=== PATIENT | male | born 1940 | race Caucasian/White ===

== ENCOUNTER 2020-09-13 09:45 | Outpatient (CLI) | payer MEDICARE, OTHER, SELFPAY ==
--- NOTE | 2020-09-14 10:42 | WPDNEUROLOGY ---
Neurology EEG Report General Information Date of Study: 09/13/20 TEST EEG DIAGNOSIS Cognitive deficit CONDITION OF RECORDING awake drowsy and sleep EEG NUMBER [id number] CLINICAL HISTORY patient has been forgetting a lot of things lately. Appointments, conversations and where he places things. EEG DESCRIPTION basic resting occipital frequency consist of large amount of well-organized low to medium voltage 8 to 10 hertz per 2nd alpha admixed with low-voltage 15 to 18 hertz per 2nd beta. During drowsiness low-voltage beta activity seen diffusely admixed with waxing and waning posterior alpha rhythm. Bilateral symmetrical sleep activity seen during sleep with normal and symmetrical sleep spindles. hyperventilation not done. photic stimulation produced a normal drive. non paroxysmal .nonfocal. nonlateralizing. IMPRESSION normal record
== END 2020-09-13 09:46 | disposition home or self-care (01) ==
PROVIDERS: PCP Internal Medicine; Visit Provider Psychiatry & Neurology Neurology
DX: R41.841 Cognitive communication deficit (principal)
CPT/HCPCS: 95816

== ENCOUNTER 2020-10-27 09:12 | Outpatient (CLI) | payer MEDICARE, OTHER, SELFPAY ==
--- NOTE | 2020-10-27 11:00 | NEURO_ITS ---
Impression: # Complains of hand weakness. # Mild evolving Carpal Tunnel Syndrome. # No ulnar neuropathy. # Normal needle/EMG exam with no neurogenic changes. # Clinical correlation recommended. Nerve Conduction Studies Anti Sensory Summary Table Stim Site NR Peak (ms) P-T Amp (?V) Site1 Site2 Delta-P (ms) Dist (cm) Carlos (m/s) Left Median Anti Sensory (2-3nd Digit) Wrist 3.2 6.4 Wrist 2-3nd Digit 3.2 14.0 44 Wrist 3.2 20.9 Wrist 2-3nd Digit 3.2 14.0 44 Right Median Anti Sensory (2-3nd Digit) Wrist 3.3 7.9 Wrist 2-3nd Digit 3.3 14.0 42 Wrist 3.3 10.8 Wrist 2-3nd Digit 3.3 14.0 42 Left Radial Anti Sensory (Base 1st Digit) Wrist 2.3 13.6 Wrist Base 1st Digit 2.3 0.0 Right Radial Anti Sensory (Base 1st Digit) Wrist 2.9 7.3 Wrist Base 1st Digit 2.9 0.0 Left Ulnar Anti Sensory (5th Digit) Wrist 2.4 25.0 Wrist 5th Digit 2.4 14.0 58 Right Ulnar Anti Sensory (5th Digit) Wrist 2.2 24.0 Wrist 5th Digit 2.2 14.0 64 Motor Summary Table Stim Site NR Onset (ms) O-P Amp (mV) Site1 Site2 Delta-0 (ms) Dist (cm) Carlos (m/s) Left Median Motor (Abd Poll Brev) Wrist 3.4 1.0 Elbow Wrist 6.1 33.0 54 Elbow 9.5 1.2 Right Median Motor (Abd Poll Brev) Wrist 3.8 1.8 Elbow Wrist 5.8 32.0 55 Elbow 9.6 1.1 Left Ulnar Motor (Abd Dig Minimi) Wrist 2.4 3.7 A Elbow Wrist 6.2 33.0 53 A Elbow 8.6 3.1 Right Ulnar Motor (Abd Dig Minimi) Wrist 2.6 3.8 A Elbow Wrist 5.8 31.0 53 A Elbow 8.4 2.8 F Wave Studies NR F-Lat (ms) L-R F-Lat (ms) Left Median (Mrkrs) (Abd Poll Brev) 30.57 0.57 Right Median (Mrkrs) (Abd Poll Brev) 31.15 0.57 Left Ulnar (Mrkrs) (Abd Dig Min) 30.97 0.83 Right Ulnar (Mrkrs) (Abd Dig Min) 31.80 0.83 EMG Side Muscle Nerve Root Ins Act Fibs Amp Dur Recrt Comment Right 1stDorInt Ulnar C8-T1 Nml Nml Nml Nml Nml Right Ext Indicis Radial (Post Int) C7-8 Nml Nml Nml Nml Nml Right Ext Digitorum Radial (Post Int) C7-8 Nml Nml Nml Nml Nml Right BrachioRad Radial C5-6 Nml Nml Nml Nml Nml Right PronatorTeres Median C6-7 Nml Nml Nml Nml Nml Right Abd Poll Brev Median C8-T1 Nml Nml Nml Nml Nml Left 1stDorInt Ulnar C8-T1 Nml Nml Nml Nml Nml Left Ext Indicis Radial (Post Int) C7-8 Nml Nml Nml Nml Nml Left Ext Digitorum Radial (Post Int) C7-8 Nml Nml Nml Nml Nml Left BrachioRad Radial C5-6 Nml Nml Nml Nml Nml Left PronatorTeres Median C6-7 Nml Nml Nml Nml Nml Left Abd Poll Brev Median C8-T1 Nml Nml Nml Nml Nml Right ABD Dig Min Ulnar C8-T1 Nml Nml Nml Nml Nml Right Anconeus Radial C7-8 Nml Nml Nml Nml Nml Right Biceps Musculocut C5-6 Nml Nml Nml Nml Nml Right Brachialis Musculocut C5-6 Nml Nml Nml Nml Nml Right Triceps Radial C6-7-8 Nml Nml Nml Nml Nml Left ABD Dig Min Ulnar C8-T1 Nml Nml Nml Nml Nml Left Anconeus Radial C7-8 Nml Nml Nml Nml Nml Left Biceps Musculocut C5-6 Nml Nml Nml Nml Nml Left Brachialis Musculocut C5-6 Nml Nml Nml Nml Nml Left Triceps Radial C6-7-8 Nml Nml Nml Nml Nml MTDD
== END 2020-10-27 09:13 | disposition home or self-care (01) ==
PROVIDERS: PCP Internal Medicine; Visit Provider Psychiatry & Neurology Neurology
DX: R53.1 Weakness (principal); G56.00 Carpal tunnel syndrome, unspecified upper limb
CPT/HCPCS: 95886; 95911

== ENCOUNTER 2020-11-17 10:32 | Outpatient (CLI) | payer MEDICARE, OTHER, SELFPAY ==
--- NOTE | ~2020-11-17 | CT_ITS ---
EXAMINATION: CT abdomen pelvis wo con EXAM DATE: 11/17/2020 11:12 INDICATION: Left flank pain intermittent. TECHNIQUE: Spiral CT of the abdomen and pelvis was performed without contrast. Axial, coronal and sag ittal images were reviewed. The dose-length product (DLP) for this examination was 271.94 mGy-cm. T he exposure was tailored according to patient size (auto mA exposure control), and iterative reconstr uction (ASIR) was used as additional dose reduction technique. Comparison is made to prior examinatio n from 05/13/2014. FINDINGS: Scattered renal lesions most likely cysts and hemorrhagic cyst but incompletely characteriz ed without contrast. Large left renal pelvic stone measuring 1.6 cm. There is moderate prostatomegaly . The bladder is unremarkable. The liver, spleen, adrenal glands and pancreas are unremarkable. Ga llbladder is unremarkable. No biliary obstruction. There is no retroperitoneal or pelvic lymphadeno jasmin. 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 Small bilateral inguinal fat-containing hernias. The appendix is not positively visualized. There is no pericecal inflammatory change to suggest appe ndicitis. The stomach and small bowel are unremarkable. There is expected amount of colonic stool. No free intraperitoneal gas. The heart is normal in size. There are no pericardial or pleural e ffusions. The lung bases are unremarkable. There are no osteoblastic or osteolytic lesions identifi ed. IMPRESSION: 1. Large left renal pelvic stone. 2. Bilateral renal lesions statistically most likely cysts and hemorrhagic cysts but incompletely ch aracterized. 3. 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 4. Moderate prostatomegaly. Reviewed, dictated and finalized at location B. ING DOWN MACHINE OPERATOR IMPRESSION: 1. Large left renal pelvic stone. 2. Bilateral renal lesions statistically most likely cysts and hemorrhagic cys ts but incompletely characterized. 3. 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 4. Moderate prostatomegaly.
== END 2020-11-17 10:33 | disposition home or self-care (01) ==
PROVIDERS: PCP Internal Medicine; Visit Provider Urology
DX: R10.9 Unspecified abdominal pain (principal); N20.0 Calculus of kidney; N28.9 Disorder of kidney and ureter, unspecified; I72.8 Aneurysm of other specified arteries; N40.0 Benign prostatic hyperplasia without lower urinary tract symptoms
CPT/HCPCS: 74176

== ENCOUNTER 2020-11-24 07:37 | Outpatient (CLI) | payer MEDICARE, OTHER, SELFPAY ==
[2020-11-24 08:06] LABS: INR 0.9; Prothrombin Time 12.7 Seconds (11.1-14.7)
[2020-11-24 08:07] LABS: Partial Thromboplastin Time 29.3 SECONDS (22.3-36.8)
== END 2020-11-24 07:38 | disposition home or self-care (01) ==
LOC: ANHSURGERY 07:41
PROVIDERS: Family Provider Internal Medicine; PCP Internal Medicine; Visit Provider Urology
DX: Z01.812 Encounter for preprocedural laboratory examination (principal); N20.0 Calculus of kidney; Z51.81 Encounter for therapeutic drug level monitoring; Z79.899 Other long term (current) drug therapy
CPT/HCPCS: 36415; 85610; 85730; 87086

== ENCOUNTER 2020-11-30 01:53 | Outpatient (CLI) | payer MEDICARE, OTHER, SELFPAY ==
[2020-11-30 18:12] LABS: SARS-CoV-2 RNA PCR Negative
== END 2020-11-30 01:54 | disposition home or self-care (01) ==
LOC: ANHCOVIDDT 01:54
PROVIDERS: Family Provider Internal Medicine; PCP Internal Medicine; Visit Provider Urology
DX: Z01.812 Encounter for preprocedural laboratory examination (principal); Z20.822 Contact with and (suspected) exposure to COVID-19
CPT/HCPCS: C9803; U0003; U0005

== ENCOUNTER 2020-12-03 02:41 | Day surgery (SDC) | payer MEDICARE, OTHER, SELFPAY ==
[2020-11-22 15:53] VITALS: BMI 27.1
--- NOTE | 2020-11-30 07:27 | P.HP_ITS ---
History of Present Illness History of Present Illness Consent: Risks, benefits, and alternatives have been discussed and questions answered. Patient agrees to proceed with procedure. Chief complaint: Left Renal Stone Narrative: Nic Monroe is a 80 year old male with a history of recurring urolithiasis. He followed up early with complaints of mild right flank pain recently. CT scan of the abdomen and pelvis without contrast shows a 1.6 cm right renal calculus. After discussion of therapeutic options he elected for cysto with right stent placement and right ESWL Review of Systems Cardiovascular: Cardiovascular: Denies chest pain, Denies lightheadedness, Denies palpitations and Denies dyspnea Respiratory: Respiratory: Denies dyspnea Gastrointestinal: Gastrointestinal: Denies diarrhea, Denies nausea and Denies vomiting Genitourinary: Genitourinary: Denies hematuria and Denies dysuria Endocrine: Endocrine: Denies palpitations [facility] Surgical History Surgical History Status post dilation of esophageal narrowing Social History Social History Smoking packs per day: 1 Smoking cigarettes per day: 20.0 Years smoked: 9 Smoking pack-years: 9.00 Smoking status: Former smoker Tobacco type: cigarettes Smoking end date: 11/05/78 Alcohol intake: current Drinks per week: 1 Substance use: never Spiritual care concerns: No Meds Home Medications and Allergies Home Medications Medication Instructions Recorded Confirmed Type aspirin 81 mg tablet,delayed 81 mg PO DAILY 06/23/20 11/22/20 History release atorvastatin 10 mg PO QAM 11/22/20 11/22/20 History melatonin 3 mg PO HS PRN 11/22/20 11/22/20 History vitamins A,C,J-rbcs-zqydgk 1 tablet PO BID 11/22/20 11/22/20 History [PreserVision AREDS] Allergies Allergy/AdvReac Type Severity Reaction Status Date / Time alprazolam [From Xanax] Allergy Severe Jittery Verified 11/22/20 15:31 Exam Const: General: no acute distress Resp: Effort & Inspection: normal respiratory effort GI: Inspection: non-distended GI Palp: No abdominal tenderness and No Guar ding due to palpation present (GI) Auscultation: normal bowel sounds Assessment and Plan Assessment and plan (1) Right renal stone: Code(s): N20.0 - Calculus of kidney Status: Acute Assessment and Plan: * Cystoscopy with right ureteral stent placement, right ESWL.
--- NOTE | 2020-12-02 14:48 | P.PNAN_ITS ---
Anes - Initial Pre Proc Eval Procedure: Operation Date: 12/03/20 12:30 Proposed Procedures p Left Extracorporeal Shock Wave Lithotripsy - Jamey Hall MD s Cystoscopy, Left Ureteral Stent - Jamey Hall MD Date/Time: 12/02/20 14:48 Surgeon: Jamey Hall MD Pre Op Diagnosis: Left Renal Stone Patient Data Age: 80 Gender: M Height: 1.83 m Weight: 90.72 kg Allergies Allergy/AdvReac Type Severity Reaction Status Date / Time alprazolam [From Xanax] Allergy Severe Jittery Verified 12/03/20 10:27 Home Medications Medication Instructions Recorded Confirmed Type aspirin 81 mg tablet,delayed 81 mg PO DAILY 06/23/20 12/03/20 History release atorvastatin 10 mg PO QAM 11/22/20 12/03/20 History melatonin 3 mg PO HS PRN 11/22/20 12/03/20 History vitamins A,C,X-nhok-qrcydx 1 tablet PO BID 11/22/20 12/03/20 History [PreserVision AREDS] Patient hx anesthesia problems: none Family hx anesthesia problems: none [facility] Past Medical History Medical History (Updated 12/02/20 @ 14:49 by Cliff Whyte MD) Arthritis CAD (coronary artery disease) Hypercholesterolemia TERRELL (obstructive sleep apnea) Overweight (BMI 25.0-29.9) Surgical History Surgical History (Updated 12/02/20 @ 14:49 by Cliff Whyte MD) History of coronary artery stent placement x 2007 Status post dilation of esophageal narrowing Social History Social History Smoking packs per day: 1 Smoking cigarettes per day: 20.0 Years smoked: 9 Smoking pack-years: 9.00 Smoking status: Former smoker Tobacco type: cigarettes Smoking end date: 11/05/78 Alcohol intake: current Drinks per week: 1 Substance use: never Living arrangements: alone Spiritual care concerns: No Anes - Eval Final PreProcedure Day of Procedure 12/02/20 14:48 Patient weight: overweight Heart: regular rate and rhythm Lungs: clear to auscultation and normal air movement Airway: Mallampati scale class II Neurological: alert and oriented Last oral intake: >/= 8 hours ASA classification: III Emergent: no Anesthetic plan: proceed Anesthesia type and monitoring: general LMA Informed Consent: The patient's anesthetic plan and its attendant risks and benefits were discussed with the patient/family/POA. Questions were solicited and answers provided to the satisfaction of the patient/family/POA.
[2020-12-03] VITALS (8 sets, daily range): BP systolic 120–152; BP diastolic 60–99; PULSE 60–75; RESP 10–20; TEMP 36.2–36.5; O2SAT 98–100
--- NOTE | ~2020-12-03 | XR_ITS ---
EXAMINATION: XR abdomen/kub 1V DATE: 12/03/2020 13:44 INDICATION: Left kidney stone. TECHNIQUE: A supine view of the abdomen on 3 radiographs was obtained. COMPARISON: CT abdomen and pelvis 11/17/2020 FINDINGS: There are no dilated loops of bowel. There are phleboliths in the pelvis. There is a 17 mm stone in left renal pelvis. IMPRESSION: 1. 17 mm stone in left renal pelvis. Reviewed, dictated and finalized at location A. ATIONAL AID
--- NOTE | 2020-12-03 08:46 | WPDHPUPDATE1 ---
History and Physical Update Update Date/Time: 12/03/20 08:46 History and Physical has been reviewed, including an updated exam of the patient. There are NO changes in the patient's condition. Risks, benefits, and alternatives have been discussed and questions answered. Patient agrees to proceed with procedure.
[2020-12-03] MEDS: LACTATED RINGERS 1,000 ML 30 ML IV CONT (10:47)
[2020-12-03] MEDS: ceFAZolin 2 GM/D5W 50 ML 2 GM/50 ML BAG IVPB (11:55)
--- NOTE | 2020-12-03 12:30 | PM.PROC ---
Procedure Note - Detailed Date of procedure: 12/03/20 Pre-op diagnosis: Left Renal Stone Post-op diagnosis: same Procedure performed: Cystoscopy with left ureteral stent placement and left ESWL Description of procedure: The patient was brought to the operative suite where he was placed in the supine position on the Dornier lithotripter table. Flexible cystoscopy was undertaken with a 16F flexible cystoscopy. There were no urethral strictures. The prostatic urethra estimated length was 2.0cm. There was mild obstruction of the prostatic urethra with small median lobe enlargement. The bladder mucosa was normal and there was a single, orthotopic ureteral orifice bilaterally. A 0.035 glidewire was advanced into the left renal pelvis under fluoroscopy. A 4.8F J-J ureteral stent was positioned with the proximal coil in the renal pelvis and the distal coil in the bladder. The patient was then repositioned in the supine position with the focal point of the lithotriptor on a 6-7mm left mid-ureteral calculus. A total of 2500 shocks were delivered at a power setting of 4 to a 15mm left renal pelvic calculus. There appeared to be good fragmentation of the stone. The patient tolerated the procedure well and was taken to the recovery room in good condition. Anesthesia: GLMA Surgeon: Jamey Hall MD Estimated blood loss (mL): 0 Drains: Yes (4.8F left ureteral stent) Packing: No Pathology: none sent Complications: No immediate complications Condition: stable Disposition: PACU
[2020-12-03] MEDS: oxyCODONE HCL (*CRX) 5 MG TAB IR PO (14:19)
[2020-12-03] MEDS: KETOROLAC 30 MG/ML VIAL (*BKC) IV PUSH (14:42)
== END 2020-12-03 14:45 | disposition home or self-care (01) ==
PROVIDERS: Family Provider Internal Medicine; PCP Internal Medicine; Visit Provider Urology
PROC: (CPT 50590; principal; 2020-12-03 12:30)
PROC: (CPT 52352; 2020-12-03 12:30)
DX: Z87.891 Personal history of nicotine dependence (principal); Z79.82 Long term (current) use of aspirin
CPT/HCPCS: 50590; 52332; 74018; A9270; C1769; C1887; C2617; J0690; J1885; J2405; J2704; J3010; J7120

== ENCOUNTER 2020-12-22 12:18 | Outpatient (CLI) | payer MEDICARE, OTHER, SELFPAY ==
--- NOTE | ~2020-12-22 | XR_ITS ---
XR abdomen/kub 1V DATE: 12/22/2020 12:39 INDICATION: Kidney stone TECHNIQUE: AP projection, 2 views COMPARISON: 12/03/2020 KUB FINDINGS: The previously reported 17 mm calcified left renal pelvic stone was subjected to recent li thotripsy (12/03/2020 presumably). There is a left internal urinary stent placed since 12/03/2020 KUB. There are multiple calcified stone fragments in the lower pole collecting system of the left kidney and in a linear array of approximat betzy 6 cm length along the proximal left ureter from upper L3 to upper L4 level (Steinstrasse). At least one calcified distal left ureteral stone near the ureterovesical junction is noted. Interval stent overlying the distal abdominal aorta and common iliac area. The psoas shadows are intact. No visceromegaly is evident. No evidence of bowel obstruction. school bus monitor device overlies the lower left chest. The lower lung zones are clear. Heart size appe ars normal. IMPRESSION: Interval left internal urinary stent placement following lithotripsy of 1.7 cm left renal pelvic stone, with multiple stone fragments in the lower pole collecting system, Steinstrasse at the proximal left ureter and at least one distal left ureteral stone Reviewed, dictated and finalized at Location A. Reviewed, dictated and finalized at location B. ANIC MARINE ENGINE IMPRESSION: Interval left internal urinary stent placement following lithotrips y of 1.7 cm left renal pelvic stone, with multiple stone fragments in the lower pole collecting system, Steinstrasse at the proximal left ureter and at least one distal left ureteral stone
== END 2020-12-22 12:19 | disposition home or self-care (01) ==
LOC: ANHIMG 12:21
PROVIDERS: PCP Internal Medicine; Visit Provider Urology
DX: N20.0 Calculus of kidney (principal); Z96.0 Presence of urogenital implants; Z98.890 Other specified postprocedural states
CPT/HCPCS: 74018

== ENCOUNTER 2021-01-11 10:16 | Outpatient (CLI) | payer MEDICARE, OTHER, SELFPAY ==
--- NOTE | ~2021-01-11 | XR_ITS ---
EXAMINATION: XR abdomen/kub 1V INDICATION: Calculus of kidney TECHNIQUE: Supine views of the abdomen were obtained on 2 radiographs. COMPARISON: 12/22/2020 FINDINGS: A left internal ureteral stent is in expected position. Again seen are multiple stones maureen cent to the proximal aspect of the stent. Several stones have migrated to the distal aspect of the ur eter adjacent to the stent at the ureterovesicular junction. Pelvic phleboliths are noted. Stones vivienne suring 6 mm and 5 mm are seen in the lower pole of the left kidney. The bowel gas pattern is normal. The visualized lung bases are clear. Endovascular stents are noted in the left pelvis. IMPRESSION: 1. Left internal ureteral stent in expected position with Steinstrasse of the left proximal and dista l ureter. Reviewed, dictated and finalized at location A. H WINDING SUPERVISOR IMPRESSION: 1. Left internal ureteral stent in expected position with Steinstrasse of the l eft proximal and distal ureter.
== END 2021-01-11 10:17 | disposition home or self-care (01) ==
LOC: ANHIMG 10:20
PROVIDERS: PCP Internal Medicine; Visit Provider Urology
DX: N20.0 Calculus of kidney (principal); Z96.0 Presence of urogenital implants
CPT/HCPCS: 74018

== ENCOUNTER 2021-01-12 13:31 | Outpatient (CLI) | payer MEDICARE, OTHER, SELFPAY ==
--- NOTE | ~2021-01-12 | XR_ITS ---
EXAMINATION: XR abdomen/kub 1V INDICATION: Calculus of the kidney TECHNIQUE: Supine views of the abdomen were obtained on 2 radiographs. COMPARISON: 01/11/2021 FINDINGS: A left internal ureteral stent is in expected position. There has been interval decrease in the number of ureteral stones adjacent to the distal aspect of the stent. Multiple stones persist ad jacent to the proximal aspect of the stent. Stones measuring up to 6 mm are noted in the left kidney lower pole. The bowel gas pattern is normal. Endovascular stents are present in the left pelvis. IMPRESSION: 1. Interval treatment or removal of previously described stones adjacent to the distal aspect of the left internal ureteral stent. Persistent Steinstrasse of the left proximal ureter. Reviewed, dictated and finalized at location A. EWATER ANALYST LAB ANALYST
== END 2021-01-12 13:32 | disposition home or self-care (01) ==
LOC: ANHIMG 13:36
PROVIDERS: PCP Internal Medicine; Visit Provider Urology
DX: N20.0 Calculus of kidney (principal); Z96.0 Presence of urogenital implants
CPT/HCPCS: 74018

== ENCOUNTER 2021-01-14 09:58 | Outpatient (CLI) | payer MEDICARE, OTHER, SELFPAY ==
[2021-01-14 10:27] LABS: INR 0.9; Prothrombin Time 12.9 Seconds (11.1-14.7)
[2021-01-14 10:28] LABS: Partial Thromboplastin Time 30.2 SECONDS (22.3-36.8)
== END 2021-01-14 09:59 | disposition home or self-care (01) ==
LOC: ANHSURGERY 09:59
PROVIDERS: PCP Internal Medicine; Visit Provider Urology
DX: Z01.818 Encounter for other preprocedural examination (principal); N20.0 Calculus of kidney
CPT/HCPCS: 36415; 85610; 85730; 87086

== ENCOUNTER → 2021-01-18 00:37 | Outpatient (CLI) | payer MEDICARE, OTHER, SELFPAY ==
[2021-01-18 18:32] LABS: SARS-CoV-2 RNA PCR Negative
== END ==
PROVIDERS: PCP Internal Medicine; Visit Provider Urology
DX: Z01.812 Encounter for preprocedural laboratory examination (principal); Z20.822 Contact with and (suspected) exposure to COVID-19
CPT/HCPCS: C9803; U0003; U0005

== ENCOUNTER 2021-01-21 01:43 | Day surgery (SDC) | payer MEDICARE, OTHER, SELFPAY ==
[2021-01-13 12:06] VITALS: BMI 25.9
--- NOTE | 2021-01-17 08:01 | P.HP_ITS ---
History of Present Illness History of Present Illness Consent: Risks, benefits, and alternatives have been discussed and questions answered. Patient agrees to proceed with procedure. Chief complaint: left renal stone Narrative: Nic Monroe is a 80 year old male who is status post recent ESWL for large left renal calculus. The stone fragmented nice but he is left with a residual fragments in his left proximal ureter. After discussion options and waiting for a while has elected to proceed with repeat left ESWL. Review of Systems Cardiovascular: Cardiovascular: Denies chest pain, Denies lightheadedness, Denies palpitations and Denies dyspnea Respiratory: Respiratory: Denies dyspnea Gastrointestinal: Gastrointestinal: Denies diarrhea, Denies nausea and Denies vomiting Genitourinary: Genitourinary: Denies hematuria and Denies dysuria Endocrine: Endocrine: Denies palpitations [facility] Past Medical History Medical History Arthritis CAD (coronary artery disease) Hypercholesterolemia TERRELL (obstructive sleep apnea) Overweight (BMI 25.0-29.9) Surgical History Surgical History History of coronary artery stent placement x 2007 Status post dilation of esophageal narrowing Social History Social History Smoking packs per day: 1 Smoking cigarettes per day: 20.0 Years smoked: 10 Smoking pack-years: 10.00 Smoking status: Former smoker Tobacco type: cigarettes Smoking end date: 05/05/79 Alcohol intake: current Drinks per week: 1 Substance use: never Spiritual care concerns: No Meds Home Medications and Allergies Home Medications Medication Instructions Recorded Confirmed Type aspirin 81 mg tablet,delayed 81 mg PO DAILY 06/23/20 01/13/21 History release PreserVision AREDS 1 tablet PO BID 11/22/20 01/13/21 History atorvastatin 10 mg PO QAM 11/22/20 01/13/21 History melatonin 3 mg PO HS PRN 11/22/20 01/13/21 History fluticasone propionate 1 spray INTRANASAL BID PRN 01/13/21 01/13/21 History Allergies Allergy/AdvReac Type Severity Reaction Status Date / Time alprazolam [From Xanax] AdvReac Severe Jittery, Verified 01/13/21 11:56 AGITATION Exam Const: General: no acute distress Resp: Effort & Inspection: normal respiratory effort GI: Inspection: non-distended GI Palp: No abdominal tenderness and No Guarding due to palpation present (GI) Auscultation: normal bowel sounds Assessment and Plan Assessment and plan (1) Left renal stone: Code(s): N20.0 - Calculus of kidney Status: Acute Assessment and Plan: * Left ESWL
[2021-01-21] VITALS (7 sets, daily range): BP systolic 120–136; BP diastolic 73–83; PULSE 45–64; RESP 11–18; TEMP 36.3; O2SAT 95–100
--- NOTE | ~2021-01-21 | XR_ITS ---
EXAMINATION: XR abdomen/kub 1V DATE: 01/21/2021 08:11 INDICATION: Kidney stone. TECHNIQUE: A supine view of the abdomen on 2 radiographs was obtained. COMPARISON: CT abdomen and pelvis 11/17/2020, abdomen radiographs 01/12/2021 FINDINGS: There are no dilated loops of bowel. There is a stent graft in abdominal aorta and common i liac arteries. There are phleboliths in the pelvis. Right kidney is obscured by bowel. There is a lef t internal ureteral stent in expected position. There are stones in left kidney. There are greater th an 10 clustered stones in proximal left ureter. The largest stone or cluster of stones measures 10 x 5 mm. IMPRESSION: 1. Stones in the left kidney and proximal left ureter with left internal ureteral stent in expected p osition. Reviewed, dictated and finalized at location A. IMPRESSION: 1. Stones in the left kidney and proximal left ureter with left internal ureter al stent in expected position.
--- NOTE | 2021-01-21 08:18 | WPDHPUPDATE1 ---
History and Physical Update Update Date/Time: 01/21/21 08:18 History and Physical has been reviewed, including an updated exam of the patient. There are NO changes in the patient's condition. Risks, benefits, and alternatives have been discussed and questions answered. Patient agrees to proceed with procedure.
[2021-01-21] MEDS: LACTATED RINGERS 1,000 ML 30 ML IV CONT (08:50)
--- NOTE | 2021-01-21 10:32 | WPDANESEPPF ---
Anes - Initial Pre Proc Eval Procedure: Operation Date: 01/21/21 10:30 Proposed Procedures p Left Renal Extracorporeal Shock Wave Lithotripsy - Jamey Hall MD Date/Time: 01/21/21 10:32 Surgeon: Jamey Hall MD Pre Op Diagnosis: left renal stone Patient Data Age: 80 Gender: M Height: 6 ft Weight: 87 kg Last Vital Signs Temp 97.4 F L 01/21/21 09:08 Pulse 57 L 01/21/21 09:08 Resp 18 01/21/21 09:08 BP 128/79 01/21/21 09:08 Pulse Ox 100 01/21/21 09:08 Allergies Allergy/AdvReac Type Severity Reaction Status Date / Time alprazolam [From Xanax] AdvReac Severe Jittery, Verified 01/18/21 08:04 AGITATION Home Medications Medication Instructions Recorded Confirmed Type aspirin 81 mg tablet,delayed 81 mg PO DAILY 06/23/20 01/13/21 History release PreserVision AREDS 1 tablet PO BID 11/22/20 01/13/21 History atorvastatin 10 mg PO QAM 11/22/20 01/13/21 History melatonin 3 mg PO HS PRN 11/22/20 01/13/21 History fluticasone propionate 1 spray INTRANASAL BID PRN 01/13/21 01/13/21 History fluticasone propionate 50 1 spray INTRANASAL BID #16 ml 01/18/21 01/18/21 Rx mcg/actuation nasal spray,suspension Patient hx anesthesia problems: none Family hx anesthesia problems: none PMFSH Past Medical History Medical History Arthritis CAD (coronary artery disease) Hypercholesterolemia TERRELL (obstructive sleep apnea) Overweight (BMI 25.0-29.9) Surgical History Surgical History History of coronary artery stent placement x 2007 Status post dilation of esophageal narrowing Social History Social History Smoking packs per day: 1 Smoking cigarettes per day: 20.0 Years smoked: 10 Smoking pack-years: 10.00 Smoking status: Former smoker Tobacco type: cigarettes Smoking end date: 05/05/79 Alcohol intake: current Drinks per week: 1 Alcohol use details: 1 BOTTLE BEER/WEEK Substance use: never Living arrangements: alone Spiritual care concerns: No Anes - Eval Final PreProcedure Day of Procedure 01/21/21 10:32 Patient weight: normal Heart: regular rate and rhythm Lungs: clear to auscultation Airway: Mallampati scale class II Neurological: alert and oriented Last oral intake: >/= 8 hours ASA classification: III Emergent: no Anesthetic plan: proceed Anesthesia type and monitoring: general LMA and standard monitoring Informed Consent: The patient's anesthetic plan and its attendant risks and benefits were discussed with the patient/family/POA. Questions were solicited and answers provided to the satisfaction of the patient/family/POA.
[2021-01-21] MEDS: ceFAZolin 2 GM/D5W 50 ML 2 GM/50 ML BAG IVPB (10:53)
--- NOTE | 2021-01-21 11:18 | P.OP_ITS ---
Procedure Note - Detailed Date of procedure: 01/21/21 Pre-op diagnosis: Left ureteral stones Post-op diagnosis: same Procedure performed: Left ESWL Description of procedure: The patient was brought to the operative suite where he was placed in the supine position on the Dornier lithotripsy table. The focal point of the lithotripter was placed at a string of stones in the left proximal ureter. A total of 3000 shocks were delivered at a power setting of 4. There appeared to be good fragmentation of the stone. The patient tolerated the procedure well and was taken to the recovery room in good condition. Anesthesia: GLMA Surgeon: Jamey Hall MD Market Development Specialist: None Drains: No Packing: No Pathology: none sent Complications: No immediate complications Condition: stable Disposition: PACU
--- NOTE | 2021-01-21 12:19 | SUR.PHASEI ---
1215 - called in regards to pt's heart rate and rhythm. Hr 40-48. pt states that heart rate is typically slow for him. no orders received
--- NOTE | 2021-01-21 12:31 | SUR.PHASEI ---
[id number] - dr. stein at bedside
== END 2021-01-21 13:50 | disposition home or self-care (01) ==
PROVIDERS: PCP Internal Medicine; Visit Provider Urology
PROC: (CPT 50590; principal; 2021-01-21 10:30)
DX: N20.0 Calculus of kidney (principal); M19.90 Unspecified osteoarthritis, unspecified site; I25.10 Atherosclerotic heart disease of native coronary artery without angina pectoris; G47.33 Obstructive sleep apnea (adult) (pediatric); E78.00 Pure hypercholesterolemia, unspecified; Z87.891 Personal history of nicotine dependence; Z79.82 Long term (current) use of aspirin
CPT/HCPCS: 50590; 74018; J0690; J2704; J7120

== ENCOUNTER 2021-02-03 13:35 | Outpatient (CLI) | payer MEDICARE, OTHER, SELFPAY ==
--- NOTE | ~2021-02-03 | XR_ITS ---
EXAMINATION: XR abdomen/kub 1V EXAM DATE: 02/03/2021 14:02 INDICATION: LT renal kidney stone surgery in November . TECHNIQUE: Frontal projection of the upper abdomen, frontal projection lower abdomen/pelvis for inter pretation. Comparison is made to prior examination from 01/22/2020. FINDINGS: Left-sided double-J ureteral stent is in expected position. There are multiple calcific de nsities lined up along the proximal aspect of the stent, in same location as prior study but may have interval decrease in quantity. There is lower aortoiliac endograft. There is large amount of coloni c stool. No small bowel dilation. There is pulmonary vascular congestion. IMPRESSION: Multiple proximal left ureteral stones, possibly with mild decrease in stone burden. Reviewed, dictated and finalized at location A. IMPRESSION: Multiple proximal left ureteral stones, possibly with mild decreas e in stone burden.
== END 2021-02-03 13:36 | disposition home or self-care (01) ==
LOC: ANHIMG 13:42
PROVIDERS: PCP Internal Medicine; Visit Provider Urology
DX: N20.1 Calculus of ureter (principal)
CPT/HCPCS: 74018

== ENCOUNTER 2021-02-18 15:27 | Outpatient (CLI) | payer MEDICARE, OTHER, SELFPAY ==
--- NOTE | ~2021-02-18 | XR_ITS ---
XR abdomen/kub 1V DATE: 02/18/2021 15:54 INDICATION: Left kidney stones, history of lithotripsy and left internal urinary stent placement TECHNIQUE: AP projection, 2 views COMPARISON: 02/03/2021 KUB FINDINGS: Two of three calcified calculi persist along the proximal left ureter alongside the left in ternal urinary stent since 02/03/21. One of the 3 calcified calculi has progressed further along the left ureter, now located at approxima tely the S3 level of the distal left ureter. There is a prominent amount of feces in the colon, but diminished since 02/03/2021. Left aortic and iliac endovascular stent. IMPRESSION: Progression of one of 3 proximal ureteral calcified calculi into the distal left ureter. Persistent left internal urinary stent Reviewed, dictated and finalized at [facility]. Reviewed, dictated and finalized at location A. IMPRESSION: Progression of one of 3 proximal ureteral calcified calculi into th e distal left ureter. Persistent left internal urinary stent
== END 2021-02-18 15:28 | disposition home or self-care (01) ==
LOC: ANHIMG 15:33
PROVIDERS: PCP Internal Medicine; Visit Provider Urology
DX: N20.0 Calculus of kidney (principal); N20.1 Calculus of ureter; Z96.0 Presence of urogenital implants
CPT/HCPCS: 74018

== ENCOUNTER 2021-12-23 08:59 | Outpatient (CLI) | payer MEDICARE, OTHER, SELFPAY ==
--- NOTE | ~2021-12-23 | XR_ITS ---
EXAMINATION: XR abdomen/kub 1V INDICATION: Enlarged prostate with lower urinary tract symptoms TECHNIQUE: Supine views of the abdomen were obtained on three radiographs. COMPARISON: 02/18/2021 FINDINGS: The left internal ureteral stent has been removed. No urolithiasis is identified. There are phleboliths of the pelvis. A moderate volume of colonic stool is present. The visualized lung bases are clear. A cardiac monitoring device projects over the left lower chest wall. Endovascular stents a re noted in the left common iliac vessels. 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 IMPRESSION: 1. No urolithiasis identified. Reviewed, dictated and finalized at location A. EL SLAGMAN
== END 2021-12-23 09:00 | disposition home or self-care (01) ==
PROVIDERS: PCP Internal Medicine; Visit Provider Urology
DX: N40.1 Benign prostatic hyperplasia with lower urinary tract symptoms (principal); M16.0 Bilateral primary osteoarthritis of hip
CPT/HCPCS: 74018

== ENCOUNTER → 2022-09-19 11:56 | Outpatient (CLI) | payer MEDICARE, OTHER, SELFPAY ==
--- NOTE | ~2022-09-19 | CT_ITS ---
EXAMINATION: CT abdomen pelvis w con DATE: 09/19/2022 12:37 INDICATION: Constipation. Nausea. TECHNIQUE: Computed tomography (CT) of the abdomen and pelvis was performed with 100 mL Omnipaque 350 intravenous contrast. Automated exposure control and iterative reconstruction technique were employe d. The dose-length product was 947.74 mGy-cm. COMPARISON: CT abdomen and pelvis 11/17/2020 FINDINGS: The visualized portions of the lung bases demonstrate mild atelectasis. No pleural effusion . The heart size is normal. There are coronary artery calcifications. No pericardial effusion. There is a small sliding hiatal hernia. The liver and gallbladder are normal. Calcifications in the spleen are consistent with old granulomatous disease. The pancreas and adrenal glands are normal. There are cysts in the kidneys measuring up to 4.8 cm on the left. There are bilateral inguinal hernias contain ing fat. The prostate is severely enlarged. The appendix is not visualized. There are no dilated loop s of bowel. There is a moderate volume of stool in the colon. 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 There are no pathologically enlarged lymph nodes. There is no free intraperitonea l fluid. There is moderate lumbar spondylosis and mild thoracic spondylosis. There is a chronic compr ession fracture of L3. IMPRESSION: 1. Small sliding hiatal hernia. 2. Bilateral inguinal hernias containing fat. Reviewed, dictated and finalized at location A. [facility]
[2022-09-19 12:26] LABS: Estimated Glomerular Filt Rate > 60
== END ==
PROVIDERS: PCP Internal Medicine; Visit Provider Internal Medicine
DX: K59.00 Constipation, unspecified (principal); K44.9 Diaphragmatic hernia without obstruction or gangrene; K40.90 Unilateral inguinal hernia, without obstruction or gangrene, not specified as recurrent
CPT/HCPCS: 74177; Q9967

== ENCOUNTER → 2022-11-29 15:25 | Outpatient (CLI) | payer MEDICARE, OTHER, SELFPAY ==
--- NOTE | ~2022-11-29 | XR_ITS ---
EXAM: XR_CERV2-3V_CR DATE: 11/29/2022 15:51 HISTORY: Cervicalgia; post pain/LROM; no injury . COMPARISON: None available. FINDINGS: Craniocervical association and atlantoaxial joint are aligned and display moderate degener ative change. No prevertebral soft tissue swelling. Exaggerated cervical lordosis. 2 mm anterolisthes is at C5-6, the remaining bodies are aligned. Vertebral body heights are maintained. Mild disc space narrowing at C5-6 and C6-7. Multilevel facet hypertrophy and sclerosis. Osteopenia. Surgical clips ov er the lower neck. IMPRESSION: Minimal grade 1 anterolisthesis at C5-6. Mild lower cervical degenerative disc disease. M ultilevel facet arthropathy. Reviewed, dictated and finalized at location K. SFUSION NURSE IMPRESSION: Minimal grade 1 anterolisthesis at C5-6. Mild lower cervical degene rative disc disease. Multilevel facet arthropathy.
== END ==
PROVIDERS: PCP Internal Medicine; Visit Provider Internal Medicine
DX: M43.12 Spondylolisthesis, cervical region (principal); M50.322 Other cervical disc degeneration at C5-C6 level
CPT/HCPCS: 72040

== ENCOUNTER 2024-07-23 12:04 | Outpatient (CLI) | payer OTHER, MEDICARE, SELFPAY ==
--- NOTE | ~2024-07-23 | XR_ITS ---
EXAMINATION: XR hip LT min 2V DATE: 07/23/2024 12:17 INDICATION: Left hip pain. TECHNIQUE: 2 views of left hip were obtained. COMPARISON: None. FINDINGS: Alignment is normal. No fracture. There is severe left hip osteoarthritis. Vascular stents overlie the abdomen. IMPRESSION: 1. Severe left hip osteoarthritis. Reviewed, dictated and finalized at location A.
== END 2024-07-23 12:05 | disposition home or self-care (01) ==
LOC: MICIMG 12:06
PROVIDERS: PCP Internal Medicine; Visit Provider Internal Medicine
DX: M16.12 Unilateral primary osteoarthritis, left hip (principal)
CPT/HCPCS: 73502

== ENCOUNTER 2024-10-08 09:44 | Outpatient (CLI) | payer OTHER, MEDICARE, SELFPAY ==
--- NOTE | ~2024-10-08 | XR_ITS ---
EXAMINATION: XR_CERV2-3V_CR DATE: 10/08/2024 10:04 INDICATION: Neck pain. TECHNIQUE: 3 views of cervical spine on 5 radiographs were obtained. COMPARISON: Cervical spine radiographs 11/29/2022 FINDINGS: There is 10 degrees dextroscoliosis of cervical spine. Vertebral body heights are normal. T here is mildly decreased disc height at C5-C6. There is multilevel [id number] facet joint osteo arthritis. No central canal stenosis or prevertebral soft tissue swelling. IMPRESSION: 1. Mild cervical spondylosis. 2. Cervical dextroscoliosis. Reviewed, dictated and finalized at location A. GER CARGO
== END 2024-10-08 09:45 | disposition home or self-care (01) ==
PROVIDERS: PCP Internal Medicine; Visit Provider Internal Medicine
DX: M47.812 Spondylosis without myelopathy or radiculopathy, cervical region (principal); M41.82 Other forms of scoliosis, cervical region
CPT/HCPCS: 72040

== ENCOUNTER 2024-12-26 04:59 | Day surgery (SDC) | payer MEDICARE, OTHER, SELFPAY ==
[2024-12-11 14:52] VITALS: BMI 29.5
--- OUTSIDE RECORDS SUMMARY | 2024-12-26 05:03 | XMS_ITS | Data Portability ---
Author Organization [facility], Main Office Address [address] [place] [address] Care Team Providers Care Environmental Technician Name Role Phone HARIKA SPEAR Primary Care Provider HARIKA SPEAR Referring Provider Assessment Encounter Date Assessment Date Assessment LastModified by Organization Details LastModified Time 06/13/2023 06/13/2023 Will get a bone density because of his reported loss of height will also just monitor his arm just a bruise and ecchymosis and hematoma in evolution keep regular follow-up [email or web address] Not available 06/17/2023 14:44:14 07/27/2023 07/27/2023 Carotid duplex Endocrine referral for osteoporosis Has had some hypogonadism but has refused treatment Follow-up in 4 months [email or web address] Not available 07/28/2023 21:34:41 11/08/2023 11/08/2023 Loratadine but not loratadine D [email or web address] Not available 11/08/2023 15:41:07 2024 2024 84-year-old male presents for evaluation of his left hip. He reports longstanding pain over a year, getting progressively worse. He denies any acute injury. He reports pain as 2/10. He has not had any treatments for this yet. He has pain with walking and activities, worse with increasing activity. Review of systems per patient questionnaire Physical exam: He has tenderness to palpation in the groin and posterior hip. No pain with logroll. Flexion to 100, 10 of internal rotation, 30 of external rotation, which causes him pain. He has negative Stinchfield, good hip flexion and abduction adduction strength. X-rays were reviewed, demonstrating degenerative changes with joint space narrowing, sclerosis, osteophytes He has osteoarthritis of the hip. We will begin with a course of conservative management with physical therapy anti-inflammatori es. We discussed next step if he fails to improve would be to conservative a cortisone injection which be fluoroscopy guided. He may follow up as needed. Not available 08/12/2024 21:32:03 09/29/2024 09/29/2024 84-year-old male presents for follow-up of his left hip. He has osteoarthritis that we have been treating conservatively with physical therapy and meloxicam. He has finished his course of PT and doing home exercises now. That was helpful. Now he has minimal pain rated 2/10. He is walking better. No pain with range of motion, internal and external rotation. No pain with hip flexion. Nonantalgic gait. At this point he has had significant improvement. He may continue doing the physical therapy excess taking meloxicam as needed. Follow up as needed. Not available 09/29/2024 09:40:16 Plan of Treatment Reminders Order Date Submit Date Provider Last Modified By Organization Details Last Modified Time Details Appointments None recorded. Lab None recorded. Referral physical therapist referral - Please contact patient to schedule 2023 024 [facility], [address], [place], [address], 4 12:18:30 endocrinolo gy referral 2022 023 [email or web address] [place], [address] , [place], [address], 18:33:20 Procedures None recorded. Surgeries None recorded. Imaging US, duplex, carotid artery 2022 023 [facility] ([facility]), [address] [place], [address], 3 16:13:28 bone density 2022 023 [facility] ([facility]), [address] [place], [address], 3 11:03:19 Medication Orders meloxicam 15 mg tablet 2023 024 [id number], [address], [place], [place], [id number], 4 00:51:16 Patient TargetsNo targets recorded. Patient InstructionsNo instructions recorded. Reason for Referral Endocrinology Referral for O steoporosis Referring Physician: Harika Spear, Internal Medicine, Encounter Date: 07/27/2023 Physical Therapist Referral for Pain of left hip joint Please contact patient to schedule Referring Physician: Dimas Ricci, Orthopedic Surgery, Encounter Date: 2024 Results Created Date Observation Date Name Description Value Unit Range Abnormal Flag Note LastModifiedBy Organization Detail LastModifiedTime 06/15/2006/15/2023 bone densi ty [facility] [address] [place] [address] Patien t Name: MILTON MONROE Access ion #: [id number] Sex: M : 1939 6 Dictat ed By: Carmen ponce Attend ing Physic jese: CARMEN SPEAR [facility] Physic jese: CARMEN SPEAR Exam Date: 2022 08:38 AM Exam Name: XR DEXA-H IPS PELVIS SPINE Admitt ing Diagno sis(es ): CLINIC AL HISTOR Y: Loss of height . Male patien t. TECHNI QUE: The study was perfor med using a Stylect Unit. Lumbar spine and proxim al femora l evalua tions were evalua jean-claude in the fronta l projec tions. COMPAR MARY: None. Baseli ne examin ation. FINDIN GS: L1-L4 demons trates a bone minera l densit y of 1.157 g/cm2 with a T-scor e of -0.6, within normal limits . Left femora l neck evalua tion demons trates a bone minera l densit y of 0.707 g/cm2 with a T-scor e of -2.8, consis tent with osteop orosis . Right femora l neck evalua tion demons trates a bone minera l densit y of 0.732 g/cm2 with a T-scor e of -2.6 consis tent with osteop orosis . Estima jean-claude total body fat is 29.6%. BMI is 25.6 IMPRES ELICEO: Bone minera l densit y is consis tent with osteop orosis based on lowest T score as detail ed above. Electr onical ly Signed by: Carmen ponce at 2022 09:22: 10 AM Page 1 [email or web address] [facility] (Imaging) [address] [place], [address], 07/30/2023 13:58:59 08/06/2008/06/2023 US, saad turner, lori id arter y No observ ation record ed. [facility] [address] [place], [address], 11/08/2023 15:03:48 07/28/20 24 07/23/2024 XR, hip, unila teral , 2 or 3 view No observ ation record ed. [email or web address] Not Available 07/07 15:55:39 Result Notes None recorded. Problems Name Problem SNOMED Code Status Onset Date Resolution Date Notes Provider Name and Address Organization Details Recorded Time Pain in bilateral legs 07579605183 362113 Active 2022 Not Available [facility] 3 00:01:53 Decrease in height 74493487 Active 2022 Not Available [facility] 3 00:01:53 Visual disturban ce 91708222 Active 2022 Not Available [facility] 3 00:01:53 Osteoporo sis 19841078 Active 2022 Not Available [facility] 3 00:01:53 Allergic rhinitis 66451454 Active 2023 Harika Spear MD [address] [facility], [address], [place], [address] , [facility] threadsy [facility] 4 15:40:57 Pain of left hip joint 97098992622 9100 Active 2023 [facility] 4 11:09:10 Benign essential hypertens ion 7614091 Active Not Available [facility] 3 00:01:53 Chronic hoarsenes s 31984339743 05 Completed Not Available [facility] 3 04:36:26 Constipat ion 59480937 Active 2021 Not Available [facility] 3 00:01:53 Gastroeso phageal reflux disease 118988802 Active Not Available [facility] 3 00:01:53 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 Active 2021 Not Available [facility] 3 00:01:53 Pure hyperchol esterolem ia 152182072 Active Not Available [facility] 3 00:01:53 Malaise and fatigue 927047719 Active Not Available [facility] 3 00:01:53 Paroxysma l atrial fibrillat ion 837146471 Active 2021 Not Available [facility] 3 00:01:53 Pain in left lower limb 198184381 Active 2021 Not Available [facility] 3 00:01:53 Pain in right foot 64041442265 9107 Completed Not Available [facility] 3 04:36:26 Bronchiti s 58253439 Completed Not Available [facility] 3 04:36:26 Neuropath y 280468628 Active 2017 Not Available [facility] 3 00:01:53 Memory impairmen t 136181562 Active 2021 Not Available [facility] 3 00:01:53 Contact dermatiti s 95136266 Completed Not Available [facility] 3 04:36:26 Disorder character ized by carlos estrella 324044243 Active Not Available [facility] 3 00:01:53 Hypogonad ism 31440147 Active Not Available [facility] 3 00:01:53 Cough 21051181 Completed Not Available [facility] 3 04:36:27 Hand pain 90812870 Completed Not Available [facility] 04:36:27 Tinnitus 95383063 Completed Not Available [facility] 04:36:27 Rhinitis 82730752 Completed Not Available [facility] 04:36:27 Obstructi ve sleep apnea syndrome 16745957 Active Not Available [facility] 00:01:53 Neck pain 64845793 Active 2021 Not Available [facility] 3 00:01:53 Reactive airway disease 33923652828 6 Active Not Available [facility] 00:01:53 Problem Notes None recorded. Procedures Surgical History Date Name Laterality Status Provider Name and Address Organization Details Recorded Time 11/18/19 15 Colonoscopy completed Not Available [facility] 01/04/20 04:31:39 08/06/20 Colonoscopy completed Not Available [facility] 01/04/20 04:31:39 other completed Not Available [facility] 11/2022 04:31:39 Cataract Surgery completed Not Available [facility] 01/03/2023 04:31:39 Sinus Surgery completed Not Available [facility] 01/03/2023 04:31:39 Thyroid Surgery completed Not Available [facility] 01/03/2023 04:31:39 Lithotripsy completed Not Available [facility] 01/03/2023 04:31:39 Imaging Results Imaging Date Name Status LastModified by Organiz ation Details LastModified Time 06/15/2023 bone density completed [address] (Imaging) [address] [place], [address], 07/30/2023 13:58:59 08/06/2023 US, duplex, carotid artery completed [facility] [address] [place], [address], 11/08/2023 15:03:48 07/23/2024 XR, hip, unilateral, 2 or 3 view completed [email or web address] Information not available 07/28/2024 15:55:39 Procedure Notes None recorded. Medical Equipment None Reported. Allergies Allergen ID Allergen Name Allergen Category Reaction Reaction Severity Criticality Documentation Date Start Date Code Code System Note Provider Name and Address Organization Details Recorded Time 6675 Xanax medicatio n other Not available Not available 01/03/202330683 3 RxNorm anxie ty Not Available [facility] 3 04:43:54 Medications Name Sig Start Date Stop Date Status Note LastModified by Organization Details LastModified Time Singulair 10 mg tablet Take 1 tablet every day by oral route. 08/11 completed Not Available Not Available Not Available neomycin-po lymyxin-hyd rocort 3.5 mg/mL-10,00 0 unit/mL-1 % ear solution 01/30 completed Not Available Not Available Not Available prednisone 10 mg tablet Take by oral route. 08/11 completed Not Available Not Available Not Available doxycycline hyclate 100 mg capsule Take 1 capsule twice a day by oral route for 10 days. 06/13 completed Not Available Not Available Not Available clindamycin HCl 300 mg capsule active Not Available Not Available Not Available atorvastati n 10 mg tablet Take 1 tablet every day by oral route. active Not Available Not Available No t Available ibuprofen 800 mg tablet 07/27 completed Not Available Not Available Not Available hydrocodone 5 mg-acetamin ophen 325 mg tablet active Not Available Not Available No t Available meloxicam 15 mg tablet Take 1 tablet every day by oral route. active Not Available Not Available No t Available gabapentin 400 mg capsule 10/10 completed Not Available Not Available Not Available Zithromax Z-Stalin 250 mg tablet Take 1 dose pk by oral route as directed. active Not Available Not Available No t Available clopidogrel 75 mg tablet Take 1 tablet every day by oral route. 10/07 completed Not Available Not Available Not Available amlodipine 5 mg tablet TAKE 1 TABLET BY MOUTH EVERY DAY active Not Available Not Available No t Available ciprofloxac in 500 mg tablet 06/24 completed Not Available Not Available Not Available sulfamethox azole 800 mg-trimetho prim 160 mg tablet 06/24 completed Not Available Not Available Not Available peg-electro lyte solution 420 gram oral solution 01/01 completed Not Available Not Available Not Available omeprazole 40 mg capsule,del ayed release 05/31 completed Not Available Not Available Not Available tramadol 50 mg tablet 07/27 completed Not Available Not Available Not Available amoxicillin 500 mg tablet 06/13 completed Not Available Not Available Not Available amoxicillin 875 mg tablet 07/27 completed Not Available Not Available Not Available prednisolon e acetate 1 % eye drops,suspe nsion 08/21 completed Not Available Not Available Not Available tobramycin 0.3 % eye drops 05/23 completed Not Available Not Available Not Available lisinopril 10 mg tablet Take 1 tablet every day by oral route. active Not Available Not Available No t Available losartan 25 mg tablet TAKE 1 TABLET BY MOUTH EVERY DAY active Not Available Not Available No t Available oxybutynin chloride ER 5 mg tablet,exte nded release 24 hr 03/31 completed Not Available Not Available Not Available gabapentin 100 mg capsule Take 1 capsule 3 times a day by oral route. active Not Available Not Available No t Available azelastine 137 mcg (0.1 %) nasal spray active Not Available Not Available Not Available methylpredn isolone 4 mg tablets in a dose pack Take by oral route. 08/11 completed Not Available Not Available Not Available albuterol sulfate HFA 90 mcg/actuati on aerosol inhaler Inhale 2 puffs 4 times a day by inhalatio n route as needed. 06/24 completed Not Available Not Available Not Available hydrocortis one 2.5 % topical ointment 08/11 completed Not Available Not Available Not Available fluticasone propionate 50 mcg/actuati on nasal spray,suspe nsion Inhale 2 sprays every day by intranasa l route in the evening. 02/16 completed Not Available Not Available Not Available finasteride 5 mg tablet Take 1 tablet every day by oral route. 10/04 completed Not Available Not Available Not Available amoxicillin 875 mg-potasskietu m clavulanate 125 mg tablet Take 1 tablet twice a day by oral route for 10 days. 08/11 completed Not Available Not Available Not Available tobramycin 0.3 %-dexametha sone 0.1 % eye drops,suspe nsion 4 DROPS IN AFFECTED EAR 2X DAILY FOR 7 DAYS 10/21 completed Not Available Not Available Not Available ezetimibe 10 mg tablet active Not Available Not Available Not Available rosuvastati n 10 mg tablet TAKE 1 TABLET BY MOUTH DAILY 08/11 completed Not Available Not Available Not Available AndroGel 1 % 12.5 mg/1.25 gram per pump actuation transdermal gel 10/10 completed Not Available Not Available Not Available protein 1 drink per day 03/31 completed Not Available Not Available Not Available Co Q-10 2022 active Not Available Not Available Not Avai lable calcium active Not Available Not Avail able Not Available Fish Oil 12/27 completed Not Available Not Available Not Available Aspir-81 2013 active Not Available Not Available Not Avai lable Vitamin D 06/24 completed Not Available Not Available Not Available multivitami n 11/20 completed Not Available Not Available Not Available PreserVisio n AREDS 09/25 completed Not Available Not Available Not Available Durezol 0.05 % eye drops 05/23 completed Not Available Not Available Not Available Myrbetriq 25 mg tablet,exte nded release Take 1 tablet every day by oral route. 03/31 completed Not Available Not Available Not Available Ilevro 0.3 % eye drops,suspe nsion 05/23 completed Not Available Not Available Not Available Eliquis 5 mg tablet 02/16 completed Not Available Not Available Not Available turmeric 07/27 completed Not Available Not Available Not Available melatonin 3 mg capsule Take by oral route. 2022 active Not Available Not Available Not Avai lable Vitals Date Recorded Body height Body mass index (BMI) Body weight Body temperature Heart rate Oxygen saturation Oxygen saturation in Arterial blood by Pulse oximetry Systolic blood pressure Diastolic blood pressure Provider Name and Address Organization Details Last Updated DateTime 3 177.8 cm 27.1 kg/m2 81173.9 6 g 98.4 [degF] 62 /min 97 % 97 % 120 mm[Hg] 80 mm[Hg] Indira Ta [place] [facility] 3 13:42:40 Date Recorded Body height Body mass index (BMI) Body weight Body temperature Heart rate Systolic blood pressure Diastolic blood pressure Provider Name and Address Organization Details Last Updated DateTime 3 177.8 cm 29.1 kg/m2 49032.2 5 g 98.1 [degF] 61 /min 120 mm[Hg] 62 mm[Hg] Jessica Hernandez [facility] 3 09:48:13 Date Recorded Body height Body mass index (BMI) Body weight Body temperature Heart rate Systolic blood pressure Diastolic blood pressure Provider Name and Address Organization Details Last Updated DateTime 4 177.8 cm 29.3 kg/m2 76481.8 4 g 97.9 [degF] 68 /min 110 mm[Hg] 70 mm[Hg] Jessica Hernandez [facility] 4 12:14:49 Date Recorded Body height Body mass index (BMI) Body weight Provider Name and Address Organization Details Last Updated DateTime 2024 177.8 cm 28.1 kg/m2 19433.1 g April Douglas [facility] 2024 10:58:32 Date Recorded Body height Body mass index (BMI) Body weight Pain severity - 0-10 verbal numeric rating [Score] - Reported Provider Name and Address Organization Details Last Updated DateTime 09/29/2024 177.8 cm 28.1 kg/m2 33514.1 g Gato Hernandez Donta [facility] 09/29/2024 09:33:48 Social History Question Answer Notes LastModified by Organization Details LastModified Time Tobacco Smoking Status Former Smoker quit 1979 Not Available [facility] 01/03/2023 04:06:47 Do You Have An Advance Directive? No MIGRATION.030 [id number] Information not available 01/03/2023 What Is Your Level Of Alcohol Consumption? None MIGRATION.030 897157 Information not available 01/03/2023 Are You Blind Or Do You Have Difficulty Seeing? No MIGRATION.030 117953 Information not available 01/03/2023 What Is Your Level Of Caffeine Consumption? Moderate MIGRATION.0301 932904 Information not available 01/03/2023 How Much Tobacco Do You Chew? None MIGRATION.030 927618 Information not available 01/03/2023 In The 14 Days Before Symptom Onset, Have You Had Close Contact With A Laboratory-confi rmed COVID-19 While That Case Was Ill? No MIGRATION.0301 726009 Information not available 01/03/2023 In The 14 Days Before Symptom Onset, Have You Had Close Contact With A Person Who Is Under Investigation For COVID-19 While That Person Was Ill? No MIGRATION.0301 758284 Information not available 01/03/2023 Are You Deaf Or Do You Have Serious Difficulty Hearing? No MIGRATION.0301 857297 Information not available 01/03/2023 What Type Of Diet Are You Following? REGULAR MIGRATION.0301 558511 Information not available 01/03/2023 Which Illicit Or Recreational Drugs Have You Used? None MIGRATION.0301 014777 Information not available 01/03/2023 Do You Or Have You Ever Used E-cigarettes Or Vape? Never Used Electronic Cigarettes MIGRATION.0301 440182 Information not available 01/03/2023 What Is The Highest Grade Or Level Of School You Have Completed Or The Highest Degree You Have Received? [id number] MIGRATION.0301 088749 Information not available 01/03/2023 What Is Your Occupation? Retired MIGRATION.0301 876848 Information not available 01/03/2023 Have There Been Any Changes To Your Family Or Social Situation? No MIGRATION.0301 981241 Information not available 01/03/2023 What Is The Fluoride Status Of Your Home? Unknown MIGRATION.0301 137408 Information not available 01/03/2023 When Did You Quit Smoking? 18+yearssincelastci galen MIGRATION.0301 061013 Information not available 01/03/2023 Are There Any Guns Present In Your Home? Yes MIGRATION.0301 761555 Information not available 01/03/2023 Do You Use Insect Repellent Routinely? No MIGRATION.0301 570185 Information not available 01/03/2023 Where Do You Live? SingleLevelHouse MIGRATION.0301 646998 Information not available 01/03/2023 Do You Have A Medical Power Of Dra[employer]? No MIGRATION.0301 853495 Information not available 01/03/2023 What Was The Date Of Your Most Recent Tobacco Screening? 11/08/2023 [email or web address] Information not available 11/08/2023 Do You Have Any Pets? No MIGRATION.0301 913522 Information not available 01/03/2023 What Is Your Relationship Status? MIGRATION.0301 263668 Information not available 01/03/2023 Do You Use Your Seat Belt Or Car Seat Routinely? Yes MIGRATION.0301 689265 Information not available 01/03/2023 Do You Have Smoke And Carbon Monoxide Detectors In Your Home? Yes MIGRATION.0301 992428 Information not available 01/03/2023 At What Age Did You Start Smoking Tobacco? 18 MIGRATION.0301 678886 Information not available 01/03/2023 Are You Passively Exposed To Smoke? No MIGRATION.0301 785318 Information not available 01/03/2023 Do You Or Have You Ever Used Smokeless Tobacco? Never Used Smokeless Tobacco MIGRATION.0301 661176 Information not available 01/03/2023 Are There Any Smokers In Your House? No MIGRATION.0301 602080 Information not available 01/03/2023 How Much Tobacco Do You Smoke? No Was 1ppd MIGRATION.0301 537396 Information not available 01/03/2023 What Types Of Sporting Activities Do You Participate In? None MIGRATION.0301 363476 Information not available 01/03/2023 Do You Feel Stressed (tense, Restless, Nervous, Or Anxious, Or Unable To Sleep At Night)? CV08671-1 MIGRATION.0301 639511 Information not available 01/03/2023 Do You Use Any Illicit Or Recreational Drugs? No MIGRATION.0301 438572 Information not available 01/03/2023 Do You Use Sunscreen Routinely? No MIGRATION.0301 910096 Information not available 01/03/2023 Has Tobacco Cessation Counseling Been Provided? No MIGRATION.0301 412810 Information not available 01/03/2023 Have You Recently Traveled Abroad? No MIGRATION.0301 597511 Information not available 01/03/2023 Do You Have Any Dietary Restrictions? No MIGRATION.0301 334252 Information not available 01/03/2023 Do You Or Have You Ever Used Any Other Forms Of Tobacco Or Nicotine? No MIGRATION.0301 359472 Information not available 01/03/2023 Sex: Male Functional Status Question Answer Note LastModified by Organizat ion Details LastModified Time Do you have difficulty walking or climbing stairs? No MIGRATION.7487185 026 Information not available 01/03/2023 Do you have transportation difficulties? No MIGRATION.7213837 026 Information not available 01/03/2023 Are you able to walk? YESWOREST MIGRATION.6366960 026 Information not available 01/03/2023 Do you have difficulty doing errands alone? No MIGRATION.3988417 026 Information not available 01/03/2023 Are you able to care for yourself? Yes MIGRATION.9048151 026 Information not available 01/03/2023 Do you have difficulty dressing or bathing? No MIGRATION.6541138 026 Information not available 01/03/2023 What is your exercise level? None MIGRATION.2670726 026 Information not available 01/03/2023 Mental Status Question Answer Note LastModified by Organizat ion Details LastModified Time Do you have difficulty concentrating, remembering or making decisions? Yes MIGRATION.027044136 6 Information not available 01/03/2023 Family History Relationship Description Onset Age of this Age Resolved Age Notes LastModified by Organization Details LastModified Time Mother Heart disease MIGRATION.898 [id number] Not available 01/03/2023 04:31:41 Father Alzheimer's disease MIGRATION.443 [id number] Not available 01/03/2023 04:31:41 Brother Malignant tumor of prostate all 6 brothe rs had prosta te cancer MIGRATION.411 1905603 Not available 01/03/2023 04:31:41 Brother Chronic obstructive pulmonary disease 84 MIGRATION.627 [id number] Not available 01/03/2023 04:31:41 Medical History Condition Response NERVE DISEASE Y BLINDNESS N RHEUMATIC FEVER N KIDNEY STONES N BLADDER PROBLEMS N MRSA N OTHER # 1 N POLIO N LUNG DISEASE/DISORDER Y RADIATION / CHEMOTHERAPY N COPD Y Other # 2 N BLOOD DISEASES N EAR OR HEARING PROBLEMS N MUMPS N DEPRESSION (INCLUDING POST ) N BOWEL PROBLEMS N STROKE/TIA N ULCERS N BENIGN PROSTATIC HYPERPLASIA N MEASLES N MYOCARDIAL INFARCTION N OBESITY N GERD/NAUSEA Y ANEURYSM Y URINARY/BLADDER/KIDNEY PROBLEMS N CORONARY ARTERY DISEASE (CAD) Y ADDICTION CONCERNS N Impotence N ENDOMETRIOSIS N USE OF BLOOD THINNERS N SKIN PROBLEMS N GASTROINTESTINAL DISORDER N PERIPHERAL VASCULAR DISEASE N MUSCLE,JOINT OR BONE PROBLEMS N GASTROINTESTINAL BLEEDING N BLOOD CLOTS N ASTHMA N CATARACTS N ERECTILE DYSFUNCTION N VARICOSITIES N GI PROBLEMS N Low Testosterone N INFERTILITY N AIDS/HIV N CHEMOTHERAPY / RADIATION N LIVER DISEASE N MALE HYPOGONADISM Y HYPERTENSION Y Deficiency N TOURETTE'S N ANXIETY DISORDER N BLOOD TRANSFUSION N ANEMIA/BLOOD DISORDER N CHRONIC EAR INFECTIONS N BRONCHITIS N TUBERCULOSIS N GLAUCOMA N FOOT PROBLEM N DIVERTICULITIS N SLEEP APNEA Y CHICKENPOX N INFECTIOUS DISEASE N PROSTATE N HEART ARRHYTHMIA N INSOMNIA N HIGH CHOLESTEROL / HYPERLIPIDEMIA Y EYE PROBLEMS N HYPERTHYROIDISM N EDEMA N CHRONIC PAIN SYNDROME N HYPOTHYROIDISM N CAROTID BLOCKAGE N CONSTIPATION N BACK / NECK PROBLEMS N ATHEROSCLEROSIS N BREAST PROBLEMS N DIALYSIS N ECZEMA N OSTEOPOROSIS N ARTHRITIS N APPENDICITIS N DIABETES, TYPE N BAD TEETH N ENT N HEARTBURN / REFLUX N AUTISM SPECTRUM DISORDER (ASD) N HEPATITIS / LIVER DISEASE N GOUT N SLEEP DISORDER N ALZHEIMER'S DISEASE N Brain Problems N DEMENTIA N HERPES N SEIZURES/EPILEPSY N HEADACHES/MIGRAINES N VASCULAR DISEASE N PACEMAKER N Blood Disorder N DIZZINESS N HEART DISEASE/HEART PROBLEMS N KIDNEY DISEASE N MULTIPLE SCLEROSIS N CANCER: SPECIFY N CARDIAC ARRHYTHMIA N ATRIAL FIBRILLATION N Gall Stones N PULMONARY EMBOLISM N AUTOIMMUNE DISEASE N Immunizations Vaccine Type Date Status Note Provider Nam e and Address Organization Details Recorded Time COVID-19, mRNA, LNP-S, PF, 30 mcg/0.3 mL dose 1 completed Not Available [facility] 08/10/2023 00:01:53 COVID-19, mRNA, LNP-S, PF, 30 mcg/0.3 mL dose 1 completed Not Available [facility] 08/10/2023 00:01:53 Influenza, split virus, trivalent, preservative 5 completed Not Available [facility] 08/10/2023 00:01:54 Influenza, high-dose, quadrivalent, PF 2 completed Not Available [facility] 08/10/2023 00:01:53 Influenza, high-dose, quadrivalent, PF 1 completed Not Available [facility] 08/10/2023 00:01:53 Influenza, high-dose, trivalent, PF 9 completed Not Available [facility] 08/10/2023 00:01:54 Influenza, high-dose, trivalent, PF 8 completed Not Available [facility] 08/10/2023 00:01:54 Pneumococcal conjugate PCV 13 8 completed Not Available [facility] 08/10/2023 00:01:53 Influenza, split virus, quadrivalent, PF 7 completed Not Available [facility] 08/10/2023 00:01:54 Influenza, high-dose, trivalent, PF 7 completed Not Available [facility] 08/10/2023 00:01:54 Influenza, split virus, quadrivalent, PF 5 completed Not Available [facility] 08/10/2023 00:01:54 Influenza, split virus, trivalent, preservative 3 completed Not Available [facility] 08/10/2023 00:01:54 Past Encounters Encounter ID Performer Location Encounter Start Date Encounter Closed Date Diagnosis/Indication Diagnosis SNOMED-CT Code Diagnosis ICD10 Code Diagnosis Note [id number] [facility] [address] [address] 03/11/2021 00:00:00 03/27/2021 18:23:57 [id number] [facility] Internal [facility] [address] [address] 06/24/2021 00:00:00 06/26/2021 14:48:21 [id number] [facility] [place] [address] [place] [address] 07/13/2021 00:00:00 07/13/2021 10:06:36 [id number] [facility] [place] [address] [place] [address] 07/27/2021 00:00:00 07/27/2021 10:56:03 [id number] [facility] Internal [facility] [address] [address] 10/21/2021 00:00:00 10/22/2021 17:18:41 [id number] [facility] Internal Med [facility] [address] [place] [address] Ave[address] [address] 02/20/2022 00:00:00 02/20/2022 21:05:16 [id number] [facility] Internal Med [facility] [address] [place] [address] Leone., [address] [address] 04/24/2022 00:00:00 04/30/2022 17:03:17 [id number] [facility] Internal Med [facility] [address] [facility] [address] [place] [address] 1 08/21/2022 00:00:00 08/21/2022 10:31:05 [id number] [facility] Internal Med [facility] [address] [place], [place] [address]e., [address] [address] 11/20/2022 00:00:00 11/20/2022 21:15:18 [id number] Harika Spear MD [facility] Internal Med [facility] [address] [place], [place] [address]e., [address] [address] 02/16/2023 10:18:21 02/16/2023 11:35:06 Benign essential hypertension 4859634 I10 Pain in bi lateral legs 3325540977 6084641 M79.604 M79.605 [id number] Harika Spear MD [facility] Internal Med [facility] [address] [facility] [place] [address] 1 03/30/2023 09:42:57 03/30/2023 10:34:41 Neuropathy 337509166 G62.9 Paroxysmal atrial fibrillation 469470620 I48.0 Benign ess ential hypertension 1805918 I10 Pure hypercholesterolemia 358043151 E78.00 [id number] Harika Spear MD [facility] Internal Med [facility] [address] [facility] [address] [address] 06/13/2023 13:32:45 06/13/2023 14:16:07 Decrease in height 37768626 R29.823 [id number] Harika Spear MD [facility] Internal Med [facility] [address] [facility] [address] [address] 07/27/2023 09:31:25 07/27/2023 11:11:10 Visual disturbance 39094528 H53.9 Osteoporosis 25720600 M8 1.0 Benign ess ential hypertension 4854722 I10 [id number] Harika Spear MD [facility] Internal Med [facility] [address] [place], [place] [address]e., [place] [address] 1 11/08/2023 11:50:49 11/08/2023 13:08:49 Allergic rhinitis 48035694 J30.9 [id number] Dimas Ricci MD [facility] [address] [address] 2024 10:25:47 2024 11:22:06 Pain of left hip joint [id number] [id number] M25.275 [id number] MD REUBEN [facility] [address] [address] 09/29/2024 09:30:02 09/29/2024 09:38:56 Health Concerns Section Related Observation LastModified by Organization Detai ls LastModified Time None Recorded Concern Status LastModified by Organization Details LastModified Time None Recorded Advance Directives Directive N: Payers Encounter Date Sequence Insurance Name Policy Number Policy Roberts Covered Member ID Roberts Member ID Guarantor Name 06/13/2023 1 MEDICARE B: [employer] - RAILROAD MEDICARE Milton O Monroe [id number] Milton O Monroe 06/13/2023 2 [employer] - RAILROAD PLAN F (INDEMNITY) [id number] Milton O Monroe [id number] Milton O Monroe 07/27/2023 1 MEDICARE B: [employer] - RAILROAD MEDICARE Milton O Monroe [id number] Milton O Monroe 07/27/2023 2 [employer] - RAILROAD PLAN F (INDEMNITY) [id number] Milton O Monroe [id number] Milton O Monroe 11/08/2023 1 MEDICARE B: [employer] - RAILROAD MEDICARE Milton O Monroe [id number] Milton O Monroe 11/08/2023 2 [employer] - RAIL[employer]AD PLAN F (INDEMNITY) [id number] Milton O Monroe [id number] Milton O Monroe 2024 1 MEDICARE B: [employer] - RAILROAD MEDICARE Milton O Monroe [id number] Milton O Monroe 2024 2 [employer] - RAIL[employer] PLAN F (INDEMNITY) [id number] Milton O Monroe [id number] Milton O Monroe 09/29/2024 1 [facility]IC[facility] B[facility] [place] [facility] Milton Monroe [id number] Milton Joyab 09/29/2024 2 [facility] PLAN F (INDEMNITY) [id number] Milton Monroe [id number] Milton Klein Fer Notes Date Note Type Note Provider Name and Address Organization Details Recorded Time 06/13/2023 text/html he fell about 10 days ago knees got some bruising in still a little bit of pain in left arm but it is getting better states he has lost about 4 in in height over time Harika Spear MD [address], [place], [address], [employer] 06/17/2023 14:44:31 07/27/2023 text/html brief episode of some visual disturbance osteoporosis he needs some treatment therapy hypertension no headache Harika Spear MD [address], [place], [address], [employer] 07/28/2023 21:34:56 11/08/2023 text/html Intermittent krissy ar sinus drainage from month Harika Spear MD [address], [place], [address], [employer] 11/08/2023 15:41:42
--- OUTSIDE RECORDS SUMMARY | 2024-12-26 05:03 | XMS_ITS | Encounter Summary ---
Author Organization [facility] Address [address] [place] [address] Phone Care Team Providers Care Associate Professor Of Library Science Name Role Phone Kiel Spear MD Primary Care Provider [phone] Hoang Green MD Unavailable [phone] Encounter Details Date Type Department Care Team (Latest Contact Info) Description 12/05/2019 Orders Only [facility] Scanning, Provider Social History Tobacco Use Types Packs/Day Years Used Date Smoking Tobacco: Never Assessed Sex and Gender Information Value Date Recorded Sex Assigned at Not on file Legal Sex Male 6:07 PM PRODUCTION 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 Gender Identity Not on file Sexual Orientation Not on file documented as of this encounter Plan of Treatment Not on file documented as of this encounter Procedures Procedure Name Priority Date/Time Associated Diagnosis Comments CARDIOLOGY DOCUMENT SCAN 12/05/2019 documented in this encounter Results * CARDIOLOGY DOCUMENT SCAN (12/05/2019) Anatomical Region Laterality Modality Other us Provider Scanning CV CARDIAC SERVICES PROCEDURES Final Result documented in this encounter Visit Diagnoses Not on filedocumented in this encounter Care Teams Associate Professor Of Library Science Relationship Specialty Start Date End Date Kiel Spear MD PCP - General Internal Medicine 11/30/20 Hoang Green MD Surgeon Vascular Surgery 12/21/20 documented as of this encounter
--- OUTSIDE RECORDS SUMMARY | 2024-12-26 05:03 | XMS_ITS | Continuity of Care Document ---
Author Organization [facility] Address [address] [place] [address] [place] [address] Phone Care Team Providers Care Field Observer Name Role Phone Mery Martell Unavailable Unavailable Procedures Procedure Date Eye Exam & Treatment Refraction Office/outpatient Visit, Est Eye Exam & Treatment Advance Directives Directive Yes / No Effective Date File Name No Information Encounters Encounter Description Practice Location Reason(s) For Visit Diagnoses Date Provider Providers Copied on Encounter [facility], [address] [place] [address] [address], [place], [place], [id number], tel:[phone] [facility] No Information 8-200 9 Jayshree Chang [address] [facility] , [address], [place], [place], [facility], [place]. tel:[phone] Office/outpat ient Visit, Est [facility], [address] [place] [address] [address], [place], [place], [address], [place] tel:[phone] [facility] [place] No Information 7-200 8 Jayshree Chang [address], [address], [place], [address], [place]. tel:[phone] [facility], [address] [place] [address] [address], [place], [place], [address], tel:[phone] [facility] [place] No Information 1-200 7 Jayshree Chang [address] , [address], [place], [address], [place]. tel:[phone] Family History Family Member Type Diagnosis Age At Onset No Information Payers Payer name Insurance type Covered alliance party ID Authoriza tion(s) No Information Social History Type Description Quantity Date Captured Comments Sex Male Smoking Status No Information Chief Complaint And Reason For Visit No Information Reason For Referral Reason For Referral No Information History Of Present Illness Encounter Date Complaint History Of Prese nt Illness No Information Functional Status Date Functional Assessmen t No Information Instructions Date Instruction Additional Infor mation No Information Assessments Type Assessment Date No Information Patient Care Teams Name Effective Dates (start - stop) Status Members No Information
--- OUTSIDE RECORDS SUMMARY | 2024-12-26 05:03 | XMS_ITS | Continuity of Care Document ---
Author Organization [facility] Address [address] [facility] [address] [place] [address] Phone Care Team Providers Care Mail Opener Name Role Phone Jelani OTR/L, CHT, Betsy Unavailable Unavail able Procedures Procedure Date OT EVALUATION ORTHOTIC FITTING Carrying, Moving And Handling Objects-Cu rrent Carrying, Moving And Handling Objects-Go al Medications w/ Name Dose Freq NOT Route No Reason DOC Pain Assess Negative DOC 2015 BMI NOT Performed or Calculated NO F/U P violetta NO Reason Specified No Falls or 1 Fall w/o Injury Screened f or Fall Risk Functional Outcome Assessment not docume nted, reason not specified Static Clamshell Splint Advance Directives Directive Yes / No Effective Date File Name No Information Encounters Encounter Description Practice Location Reason(s) For Visit Diagnoses Date Provider Providers Copied on Encounter [facility], [facility], [place], [place], [id number], tel:[phone] [place] Pain in right finger(s)Stiffne ss of unspecified hand, not elsewhere classifiedEffusi on, right handOsteoarthrit is of first carpometacarpal joint, unspecifiedFinge r-joint replacement of right handAftercare following joint replacement surgery 6 Jelani Meyer. [address], [address], [place], [address], [place]. tel: [phone] Referring Provider: Manjinder Ceballos, [address], [place], [place], [address]. tel:[phone] Family History Family Member Type Diagnosis Age At Onset No Information Payers Payer name Insurance type Covered democrat ID Lor robbins(s) Medicare [facility] JORDY [id number] [facility] [id number] [facility] [id number] Social History Type Description Quantity Date Captured [...]
--- OUTSIDE RECORDS SUMMARY | 2024-12-26 05:04 | XMS_ITS | Clinical Summary ---
Author Organization [facility] Address [facility] [place] [address] Care Team Providers Care Installer Molding And Trim Name Role Phone Kiel Spear MD Primary Care Provider [phone] Hoang Green MD Unavailable [phone] Allergies Active Allergy Reactions Criticality Noted Date Comments Alprazolam Anxiety,Other (See comments) Low 008 Rosuvastatin Muscle pain Medium 04/12/2016 Medications melatonin 3 mg capsule Take 3 mg by mouth nightly 11/01/2016 Active vit A/vit C/vit E/zinc/copper (ICAPS AREDS ORAL) Take 1 tablet by mouth 2 (two) times a day Active acetaminophen 500 mg capsule Take 2 capsules (1,000 mg total) by mouth every 6 (six) hours 30 tablet 12/21/2020 Active azelastine (ASTELIN) 137 mcg (0.1 %) nasal spray Active rosuvastatin (CRESTOR) 10 mg tablet Take 1 tablet (10 mg total) by mouth daily 02/16/2021 Active amLODIPine (NORVASC) 5 mg tablet Take 1 tablet (5 mg total) by mouth daily 02/18/2022 Active vitamin B complex with C-folic acid (NEPHROCAP) 1 mg capsuleIndicati ons:Vitamin Deficiency Prevention 1 capsule Vitamin b6 daily Active coenzyme Q10 200 mg capsule Take 1 capsule (200 mg total) by mouth daily Active aspirin 81 mg enteric coated tablet Take 1 tablet (81 mg total) by mouth every morning 30 tablet 11 03/08/2022 Active UNABLE TO FIND Beets pill //wo tabs dailyMed Name: Active omega-3/dha/epa /dpa/fish oil (OMEGA-3 2100 ORAL) Take by mouth daily Active losartan (COZAAR) 25 mg tablet Take 1 tablet (25 mg total) by mouth daily 12/28/2022 Active ezetimibe (ZETIA) 10 mg tablet Take 1 tablet (10 mg total) by mouth daily 04/17/2024 Active atorvastatin (LIPITOR) 10 mg tablet 07/31/2024 Active Active Problems Problem Noted Date Diagnosed Date Osteopenia 09/09/2024 Assessment & Plan (09/16/2024 10:47 AM GRAIN BROKER): Chronic problem. Resume calcium and vitamin D - ok to use Tums since it's chewable and easier for him to swallow. And resume vitamin D 1000 units daily. Reviewed fall prevention. Repeat DEXA in a year. Descending aortic aneurysm (CMS/HCC) 01/28/2024 Other osteoporosis without current pathological fracture 08/29/2023 Assessment & Plan (08/29/2023 5:15 PM CDT): I have requested a bone density Discussed with the patient about the importance of fall precautions and continue working on some daily weight-bearing exercise Also advised him on taking at least 600 mg of calcium twice a day with vitamin-D a 1000 units daily If the bone density shows evidence of osteoporosis will consider use of the bisphosphonates. 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, but he is declining Encounter for surgical after care following surgery on the circulatory system 01/22/2023 History of percutaneous coronary intervention Paroxysmal atrial fibrillation (CMS/HCC) 022 Enlarged RV (right ventricle) 09/18/2022 Memory loss 07/18/2022 Mobitz type 1 second degree AV block 04/24/2022 Iliac artery aneurysm, left (CMS/HCC) 12/07/2020 Overview (12/07/2020): Added automatically from request for surgery [id number] Assessment & Plan (12/21/2020 6:45 AM GRAIN BROKER): - S/p L LAKESHA 12/20 - DC OU/ Angel - DC Anne - Advance diet - Continue ASA - Likely DC PM HTN (hypertension) Encounters Date Type Department Care Team Description 12/18/2024 Telephone [facility] Cardiology [address] 8[address] [place] [address] [place] [address] Renae Dee MD from Last 3 Months Immunizations Immunization Administration Dates Next Due Pfizer SARS-CoV-2 Monovalent Vaccination (12+ Yrs) THACKER-READY TO USE 05/26/2022 Surgical History Surgery Date Site/Laterality Comments APPENDECTOMY 11/05/1949 - 11/04/1950 PARATHYROIDECTOMY 11/05/1992 - 11/04/1993 SHOULDER ARTHROPLASTY 11/05/1996 - 11/04/1997 CATARACT EXTRACTION Bilateral CARDIAC STENT PLACEMENT 11/05/2009 - 11/04/2010 CYSTOSCOPY W/ LASER LITHOTRIPSY 12/03/2020 ARTERIAL ANEURYSM REPAIR Medical History Medical History Date Comments Sleep apnea CAD (coronary artery disease) HTN (hypertension) HLD (hyperlipidemia) TERRELL (obstructive sleep apnea) GERD (gastroesophageal reflux disease) Nephrolithiasis Aneurysm (CMS/HCC) (HCC) Family History Medical History Relation Name Comments Cancer Brother 1 Cancer Brother 2 Cancer Brother 3 Cancer Brother 4 Alzheimer's disease Father Cancer Mother Gallbladder disease Sister 2 Anesthesia problems Neg Hx Relation Name Status Comments Brother 1 Brother 2 Brother 3 Brother 4 Alive Father Mother Sister 1 Sister 2 Alive Social History Tobacco Use Types Packs/Day Years Used Date Smoking Tobacco: Former Cigarettes 0.5 10 1 969 - 1978 Smokeless Tobacco: Never Tobacco Cessation:Counseling Given: Not Answered Alcohol Use Standard Drinks/Week Comments Not Currently 0 (1 standard drink = 0.6 oz pur e alcohol) PHQ-2 Answer Date Recorded PHQ-2 Total Score (If total score is 3 or more points, staff should administer the PHQ-9) 0 09/16/2024 Sex and Gender Information Value Date Recorded Sex Assigned at Not on file Legal Sex Male 6:07 PM GRAIN BROKER Gender Identity Not on file Sexual Orientation Not on file Obstetrics History Last Filed Vital Signs Vital Sign Reading Time Taken Comments Blood Pressure 116/78 09/16/2024 10:21 AM GRAIN BROKER Pulse 70 09/16/2024 10:21 AM GRAIN BROKER Temperature 37 C (98.6 F) 12/22/2020 3:50 AM GRAIN BROKER Respiratory Rate 16 08/29/2023 1:54 PM CDT Oxygen Saturation 98% 07/09/2024 1:25 PM CDT Inhaled Oxygen Concentration - - Weight 92.6 kg (204 lb 3.2 oz) 09/16/2024 10:21 AM GRAIN BROKER Height 175.3 cm (5' 9.02 ) 09/16/2024 10:[address] Body Mass Index 30.14 09/16/2024 10:21 AM GRAIN BROKER Plan of Treatment Health Maintenance Due Date Last Done Comments DTaP/Tdap/Td Vaccine (1 - Tdap) 1951 Hepatitis B Screening 1960 Zoster Vaccine (1 of 2) 1992 Well Visit 65+ 2007 Pneumococcal vaccine 65+ (2 of 2 - PPSV23) 06/26/2018 05/01/2018 Covid-19 Vaccine (4 - 2023-2 5 season) 2024 05/26/2022, 06/25/2021, 06/04/2021 Influenza Vaccine (#1) 2024 , 09/30/2019, 08/28/2018, Additional history exists Depression Screening 09/16/2025 09/16/2024, 08/29/20 23 Fall Risk Assessment 09/16/2025 09/16/2024, 08/29/2023, 12/22/2020 Medical Devices Implanted Type Area Test Director Device Identifier Shelf Expiration Date Model / Serial / Lot [employer] 56553-85 Perclose 6fr Suture Mediate Knot Push Vascular Device Closure - [id number] Implanted:Qty : 1 on 12/20/2020 by Hoang Green MD at [facility] Other - see comments Left: Groin [employer] 09/04/2022 [id number] / / [id number] Description:Perclose Left groin [employer] 63013-07 Perclose 6fr Suture Mediate Knot Push Vascular Device Closure - [id number] Implanted:Qty : 1 on 12/20/2020 by Hoang Green MD at [facility] Other - see comments Left: Groin [employer] [id number] 09/04/2022 [id number] / / [id number] Description:Perclose Left Groin [employer] 66548-17 Perclose 6fr Suture Mediate Knot Push Vascular Device Closure - [id number] Implanted:Qty : 1 on 12/20/2020 by Hoang Green MD at [facility] Other - see comments Right: Groin [employer] [id number] 09/04/202212512-55 / / [id number] Description:Perclose Right Groin [employer] 70111-87 Perclose 6fr Suture Mediate Knot Push Vascular Device Closure - [id number] Implanted:Qty : 1 on 12/20/2020 by Hoang Green MD at [facility] Other - see comments Right: Groin [employer] [id number] 09/04/2022 / [id number] Description:Perclose Right Groin [employer] 13514-93 Perclose 6fr Suture Mediate Knot Push Vascular Device Closure - [id number] Implanted:Qty : 1 on 12/20/2020 by Hoang Green MD at [facility] Other - see comments Left: Groin [employer] [id number] 09/04/202266515-18 / / [id number] Description:Left Groin [employer] [id number] [place] Excluder 14.5mm 10cm Branch Component Iliac Graft - [id number] - [id number] Implanted:Qty : 1 on 12/20/2020 by Hoang Green MD at [facility] Stent Left: Iliac [employer] [id number] 11/07/2023 [id number] / [id number] / Description:Left Common jenn c Wl [employer] [id number] [place] Excluder 14.5mm 7cm Internal Component Iliac Graft - [id number] - [id number] Implanted:Qty : 1 on 12/20/2020 by Hoang Green MD at [facility] Stent Left: Iliac [employer] 05/19/2022 [id number] / [id number] / Description:Left Internal Il iac Cardiac Stents Implanted:Qty : 4 Heart Loop Recorder Chest Insurance MEDICARE RAILROAD [facility] MEDIC[facility] RAILROAD Advance Directives For more information, please contact: [phone] Documents on File Type Date Recorded Patient Swager Operator Expl anation ADVANCE DIRECTIVE 12/20/2020 9:34 AM * Full Code (Latest Code Status on File) Date Activated Date Inactivated Comments 12/20/2020 7:57 PM 12/22/2020 3:49 PM Care Teams Installer Molding And Trim Relationship Specialty Start Date End Date Kiel Spear MD PCP - General Internal Medicine 11/30/20 Hoang Green MD Surgeon Vascular Surgery 12/21/20
--- OUTSIDE RECORDS SUMMARY | 2024-12-26 05:04 | XMS_ITS | Clinical Summary ---
Author Organization [facility] Address [address] [place] [id number] Care Team Providers Care Maintenance Repairer Name Role Phone Kiel Spear MD Primary Care Provider [phone] Allergies Active Allergy Reactions Criticality Noted Date Comments Alprazolam Anxiety Low 10/30/2019 Medications Multiple Vitamins-Mineral s (PRESERVISION AREDS 2 OR) Take 1 tablet by mouth daily. Active aspirin EC (ASPIRIN EC) 81 MG tablet Take 81 mg by mouth daily. Active Active Problems Problem Noted Date Diagnosed Date Varicose veins of left leg with edema 10/30/2019 Family History Medical History Relation Comments Heart Attack Mother Relation Status Comments Father (Age 89) Mother (Age 65) Social History Tobacco Use Types Packs/Day Years Used Date Smoking Tobacco: Former Cigarettes Smokeless Tobacco: Never Alcohol Use Standard Drinks/Week Comments No 0 (1 standard drink = 0.6 oz pur e alcohol) AUDIT-C Answer Date Recorded Frequency of Alcohol Consumption Never 10/30/2019 Average Number of Drinks Not on file 019 Frequency of Binge Drinking Not on file 10/06 Sex and Gender Information Value Date Recorded Sex Assigned at Not on file Legal Sex Male 5:02 PM CDT Gender Identity Not on file Sexual Orientation Not on file Last Filed Vital Signs Vital Sign Reading Time Taken Comments Blood Pressure 148/90 04/15/2020 8:37 AM CDT Pulse 67 04/15/2020 8:37 AM CDT Temperature - - Respiratory Rate - - Oxygen Saturation - - Inhaled Oxygen Concentration - - Weight 89.2 kg (196 lb 9.6 oz) 04/15/2020 8:37 A M CDT Height 182.9 cm (6') 04/15/2020 8:37 AM CDT Body Mass Index 26.66 04/15/2020 8:37 AM CDT Plan of Treatment Health Maintenance Due Date Last Done Comments DTaP, Tdap and Td Vaccines ( 1 - Tdap) 1961 Zoster Vaccines (1 of 2) 1992 Annual Medicare Wellness Visit 2007 Pneumococcal Vaccine: 65+ Ye ars (1 of 1 - PCV) 2007 RSV Immunization or 60+ Years (1 - 1-dose 75+ series) 2017 COVID-19 Vaccine (1 - 2023-2 5 season) 2024 Influenza Adult (#1) 2024 Meningococcal B Vaccine Aged Out No l onger eligible based on patient's age to complete this topic Meningococcal Vaccine Aged Out No yolanda armando eligible based on patient's age to complete this topic RSV Immunizations Under 20 Months Aged Out No longer eligible based on patient's age to complete this topic Insurance Care Teams Maintenance Repairer Relationship Specialty Start Date End Date Kiel Spear MD [address] [facility] [address] [place] [address] PCP - General INTERNAL MEDICINE 10/07/19
--- OUTSIDE RECORDS SUMMARY | 2024-12-26 05:04 | XMS_ITS | Referral Summary ---
Author Organization [facility] Address [address] [place] [address] Care Team Providers Care Guide Dog Mobility Instructor Name Role Phone Kiel Spear MD Primary Care Provider Hoang Green MD Unavailable Encounters Date Type Department Care Team Description 12/18/2024 Telephone [facility] [address] [facility] 8th [place] [address] [place] [address] Renae Dee MD from Last 3 Months Allergies Active Allergy Reactions Criticality Noted Date [...] 09/09/2024 Assessment & Plan (09/16/2024 10:47 AM CANADIAN BACON TIER): Chronic problem. Resume calcium and vitamin D - ok to use Tums since it's chewable and easier for him to swallow. And resume vitamin D 1000 units daily. Reviewed fall prevention. Repeat DEXA in a year. 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/2020 Overview (12/07/2020): Added automatically from request for surgery [id number] Assessment & Plan (12/21/2020 6:45 AM CANADIAN BACON TIER): - S/p L LAKESHA 12/20 - DC OU/ Angel - DC Anne - Advance diet - Continue ASA - Likely DC PM HTN (hypertension) Immunizations Immunization Administration Dates Next Due Pfizer SARS-CoV-2 Monovalent Vaccination (12+ Yrs) THACKER-READY TO USE 05/26/2022 Social History Tobacco Use Types Packs/Day Years Used Date Smoking Tobacco: Former Cigarettes 0.5 10 1 969 1978 Smokeless Tobacco: Never Tobacco Cessation:Counseling Given: [...] on file Legal Sex Male 6:07 PM [employer] Gender Identity Not on file Sexual Orientation Not on file Last Filed Vital Signs Vital Sign Reading Time Taken Comments Blood Pressure 116/78 09/16/2024 10:21 AM [employer]NA[employer] TIER Pulse 70 09/16/2024 10:21 AM CANADIAN BAC[employer] TIER Temperature 37 C (98.6 F) 12/22/2020 3:50 AM CANADIAN BAC[employer] TIER Respiratory Rate 16 08/29/2023 1:54 PM CDT Oxygen Saturation 98% 07/09/2024 1:25 PM CDT Inhaled Oxygen Concentration - - Weight 92.6 kg (204 lb 3.2 oz) 09/16/2024 10:21 AM CANADIAN BAC[employer] TIER Height 175.3 cm (5' 9.02 ) 09/16/2024 10:[address] Body Mass Index 30.14 09/16/2024 10:21 AM CANADIAN BACON TIER Plan of Treatment Not on file Medical Devices Implanted Type Area Postage Machine Operator Device Identifier Shelf Expiration Date Model / Serial / Lot [employer] [id number] Perclose 6fr Suture Mediate Knot Push Vascular Device Closure - [id number] Implanted:Qty : 1 on 12/20/2020 by Hoang Green MD at [facility] Other - see comments Left: Groin [employer] 09/04/2022 [id number] / / [id number] Description:Perclose Left groin [employer] 59522-42 Perclose 6fr Suture Mediate Knot Push Vascular Device Closure - [id number] Implanted:Qty : 1 on 12/20/2020 by Hoang Green MD at [facility] Other - see comments Left: Groin [employer] [id number] 09/04/2022 [id number] / / [id number] Description:Perclose Left Groin [employer] 08348-48 Perclose 6fr Suture Mediate Knot Push Vascular Device Closure - [id number] Implanted:Qty : 1 on 12/20/2020 by Hoang Green MD at [facility] Other - see comments Right: Groin [employer] [id number] 09/04/202223342-97 / [id number] Description:Perclose Right Groin [employer] 49939-30 Perclose 6fr Suture Mediate Knot Push Vascular Device Closure - [id number] Implanted:Qty : 1 on 12/20/2020 by Hoang Green MD at [facility] Other - see comments Right: Groin [employer] [id number] 09/04/202226742-93 / [id number] Description:Perclose Right Groin [employer] 72269-60 Perclose 6fr Suture Mediate Knot Push Vascular Device Closure - [id number] Implanted:Qty : 1 on 12/20/2020 by Hoang Green MD at [facility] Other - see comments Left: Groin [employer] [id number] 09/04/202257772-54 / [id number] Description:Left Groin [employer] [id number] [place] Excluder 14.5mm 10cm Branch Component Iliac Graft - [id number] - [id number] Implanted:Qty : 1 on 12/20/2020 by Hoang Green MD at [facility] Stent Left: Iliac [employer] [id number] 11/07/2023 [id number] / [id number] / Description:Left Common jenn c [employer] [id number] [place] Excluder 14.5mm 7cm Internal Component Iliac Graft - [id number] - [id number] Implanted:Qty : 1 on 12/20/2020 by Hoang Green MD at [facility] Stent Left: Iliac [employer] 05/19/2022 [id number] / [id number] / Description:Left Internal Il iac Cardiac Stents Implanted:Qty : 4 Heart Loop Recorder Chest Insurance MEDICARE [address] [place] [address] [facility] Advance Directives For more information, please contact: [phone] Documents on File Type Date Recorded Patient Can Filling Machine Operator Expl anation ADVANCE DIRECTIVE 12/20/2020 9:34 AM * Full Code (Latest Code Status on File) Date Activated Date Inactivated Comments 12/20/2020 7:57 PM 12/22/2020 3:49 PM Care Teams Guide Dog Mobility Instructor Relationship Specialty Start Date End Date Kiel Spear MD PCP - General Internal Medicine 11/30/20 Hoang Green MD Surgeon Vascular Surgery 12/21/20
--- OUTSIDE RECORDS SUMMARY | 2024-12-26 05:04 | XMS_ITS | Data Portability ---
Author Organization [facility] [facility] [place] Address [address] [facility] [place] [address] Care Team Providers Care Dolly Operator Name Role Phone HARIKA SPEAR Primary Care Provider Assessment Encounter Date Assessment Date Assessment LastModified by Organization Details LastModified Time 04/17/2024 04/17/2024 Weight loss add Zetia continue current therapy diagnosis discussed refuses treatment for osteoporosis at this time see me back in 4 months [email or web address] Not available 04/19/2024 15:12:42 07/23/2024 07/23/2024 blood work. X-ray hip. Healthy lifestyle care instructions. Continue current therapy. Follow up in 4 months. Not available 08/02/2024 15:43:54 10/07/2024 10/07/2024 tizanidine 4 mg at night for about a week Tylenol during the day x-ray is neck. Consider physical therapy if this does not work he can use a heating pad if he wants or ice whichever makes it better. Also healthy lifestyle care instructions were provided for being overweight he will call in 1 week if he is not improved [email or web address] Not available 10/07/2024 21:22:37 11/19/2024 11/19/2024 blood work has been ordered continue current therapy follow up with me in 4 months hypertension overweight dyslipidemia peripheral arterial occlusive disease discussed x-ray findings on his neck discussed as well all questions answered 4 month follow up [email or web address] Not available 11/23/2024 16:30:22 Plan of Treatment Reminders Order Date Submit Date Provider Last Modified By Organization Details Last Modified Time Details Appointments ANY 15 2024 09:00A Yuri Spear MD Not available Not available Not available Lab lipid panel, serum 2024 025 [place] [facility], [address], [place], [address], 11/20/2024 06:20:25 CMP, serum or plasma 2024 025 [place] [facility], [address], [place], [address], 11/20/2024 06:20:26 CBC w/ auto diff 2024 025 [place] [facility], [address], [place], [address], 11/20/2024 06:20:27 lipid panel, serum 2023 024 [place] [facility], [address], [place], [address], 07/24/2024 06:20:35 CMP, serum or plasma 2023 024 [place] [facility], [address], [place], [address], 07/24/2024 06:20:35 CBC w/ auto diff 2023 024 [place] [facility], [address], [place], [address], 07/24/2024 06:20:36 Referral None recorded. Procedures None recorded. Surgeries None recorded. Imaging XR, cervical spine 2023 024 [facility], [address], [place], [address], 10/08/2024 14:31:45 XR, hip, unilatera l 2023 024 [facility], [address], [place], [address], 07/23/2024 16:45:19 Medication Orders tizanidin e 4 mg tablet 2023 024 [email or web address] [id number], [address], [place], [place], [id number], 10/07/2024 18:04:36 Zetia 10 mg tablet 2023 024 [email or web address] [id number], [address], [place], [place], [id number], 04/19/2024 15:12:42 Patient TargetsNo targets recorded. Patient Instructions Encounter Date Encounter Id Patient Instructions Last Modified By Organization Details Last Modified Time 04/17/2024 [id number] A healthy lifestyle: care instructions [email or web address] Not available 04/17/2024 21:48:30 04/30/2024 [id number] preventing falls : care instructions [email or web address] Not available 04/30/2024 13:41:09 Medicare [facility] Preventive Checklist [email or web address] Not available 04/30/2024 13:41:09 07/23/2024 [id number] A healthy lifestyle: care instructions Not available 07/23/2024 11:58:26 10/07/2024 [id number] A healthy lifestyle: care instructions Not available 10/07/2024 17:13:37 11/19/2024 [id number] A healthy lifestyle: care instructions Not available 11/19/2024 10:43:40 Reason for Referral None Reported. Results Created Date Observation Date Name Description Value Unit Range Abnormal Flag Note LastModifiedBy Organization Detail LastModifiedTime 07/23/20 24 07/24/2024 LIPID PANEL cholesterol, total 185 mg/dL 100-19 9 Not Available [facility] ([facility]) [address] [facility] [address] [facility], [place], [address], 07/24/2024 06:20:35 07/23/20 24 07/24/2024 LIPID PANEL triglyceride s 119 mg/dL 0-149 Not Available [facility] ([facility]) [address] [facility], [place], [address], 07/24/2024 06:20:35 07/23/20 24 07/24/2024 LIPID PANEL HDL cholesterol 48 mg/dL >39 Not Available [facility] ([facility]) [address] [facility] [place], [address], 07/24/2024 06:20:35 07/23/20 24 07/24/2024 LIPID PANEL VLDL cholesterol pollo 21 mg/dL 5-40 Not Available [facility] ([facility]) [address] [facility] [place], [address], 07/24/2024 06:20:35 07/23/20 24 07/24/2024 LIPID PANEL LDL chol calc ([facility]) 116 mg/dL 0-99 above high normal Not Available [facility] ([facility]) [address] [place], [address], 07/24/2024 06:20:35 07/23/20 24 07/24/2024 COMP. METAB OLIC PANEL (14) glucose 85 mg/dL 70-99 Not Available [facility] ([facility]) [address] [place], [address], 07/24/2024 06:20:35 07/23/20 24 07/24/2024 COMP. METAB OLIC PANEL (14) BUN 13 mg/dL 8-27 Not Available [facility] ([facility]) [address] [place], [address], 07/24/2024 06:20:35 07/23/20 24 07/24/2024 COMP. METAB OLIC PANEL (14) creatinine 0.96 mg/dL 0.76-1 .27 Not Available [facility] ([facility]) [address] [place], [address], 07/24/2024 06:20:35 07/23/20 24 07/24/2024 COMP. METAB OLIC PANEL (14) eGFR 79 mL/mi n/1.7 3 >59 Not Available [facility] ([facility]) [address] [facility], [place], [address], 07/24/2024 06:20:35 07/23/20 24 07/24/2024 COMP. METAB OLIC PANEL (14) BUN/creatini ne ratio 14 10-24 Not Available [facility] ([facility]) [address] [facility], [place], [address], 07/24/2024 06:20:35 07/23/20 24 07/24/2024 COMP. METAB OLIC PANEL (14) sodium 141 mmol/ L 134-14 4 Not Available [facility] ([facility]) [address] [facility], [place], [address], 07/24/2024 06:20:35 07/23/20 24 07/24/2024 COMP. METAB OLIC PANEL (14) potassium 4.5 mmol/ L 3.5-5. 2 Not Available [facility] ([facility]) [address] [facility], [place], [address], 07/24/2024 06:20:35 07/23/20 24 07/24/2024 COMP. METAB OLIC PANEL (14) chloride 105 mmol/ L 96-106 Not Available [facility] ([facility]) [address] [facility], [place], [address], 07/24/2024 06:20:35 07/23/20 24 07/24/2024 COMP. METAB OLIC PANEL (14) carbon dioxide, total 23 mmol/ L 20-29 Not Available [facility] ([facility]) [address] [facility] [place], [address], 07/24/2024 06:20:35 07/23/20 24 07/24/2024 COMP. METAB OLIC PANEL (14) calcium 9.3 mg/dL 8.6-10 .2 Not Available [facility] ([facility]) [address] [facility] [place], [address], 07/24/2024 06:20:35 07/23/20 24 07/24/2024 COMP. METAB OLIC PANEL (14) protein, total 6.7 g/dL 6.0-8. 5 Not Available [facility] ([facility]) [address], [place], [address], 07/24/2024 06:20:35 07/23/20 24 07/24/2024 COMP. METAB OLIC PANEL (14) albumin 4.3 g/dL 3.7-4. 7 Not Available [facility] ([facility]) [address], [place], [address], 07/24/2024 06:20:35 07/23/20 24 07/24/2024 COMP. METAB OLIC PANEL (14) globulin, total 2.4 g/dL 1.5-4. 5 Not Available [facility] ([facility]) [address] [facility], [place], [address], 07/24/2024 06:20:35 07/23/20 24 07/24/2024 COMP. METAB OLIC PANEL (14) bilirubin, total 0.3 mg/dL 0.0-1. 2 Not Available [facility] ([facility]) [address] [facility], [place], [address], 07/24/2024 06:20:35 07/23/20 24 07/24/2024 COMP. METAB OLIC PANEL (14) alkaline phosphatase 55 IU/L 44-121 Not Available [facility] ([facility]) [address] [facility], [place], [address], 07/24/2024 06:20:35 07/23/20 24 07/24/2024 COMP. METAB OLIC PANEL (14) AST (SGOT) 22 IU/L 0-40 Not Available [facility] ([facility]) [address] [facility], [place], [address], 07/24/2024 06:20:35 07/23/20 24 07/24/2024 COMP. METAB OLIC PANEL (14) ALT (SGPT) 14 IU/L 0-44 Not Available [facility] ([facility]) [address] [facility], [place], [address], 07/24/2024 06:20:35 07/23/20 24 07/23/2024 CBC WITH DIFFE RENTI AL/PL ATELE T WBC 5.8 x10e3 /uL 3.4-10 .8 Not Available [facility] ([facility]) [address] [facility], [place], [address], 07/24/2024 06:20:36 07/23/20 24 07/23/2024 CBC WITH DIFFE RENTI AL/PL ATELE T RBC 4.43 x10e6 /uL 4.14-5 .80 Not Available [facility] ([facility]) [address] [facility], [place], [address], 07/24/2024 06:20:36 07/23/20 24 07/23/2024 CBC WITH DIFFE RENTI AL/PL ATELE T hemoglobin 13.6 g/dL 13.0-1 7.7 Not Available [facility] ([facility]) [address] [facility], [place], [address], 07/24/2024 06:20:36 07/23/20 24 07/23/2024 CBC WITH DIFFE RENTI AL/PL ATELE T hematocrit 41.7 % 37.5-5 1.0 Not Available [facility] ([facility]) [address] [facility], [place], [address], 07/24/2024 06:20:36 07/23/20 24 07/23/2024 CBC WITH DIFFE RENTI AL/PL ATELE T MCV 94 fL 79-97 Not Available [facility] ([facility]) [address] [facility], [place], [address], 07/24/2024 06:20:36 07/23/20 24 07/23/2024 CBC WITH DIFFE RENTI AL/PL ATELE T MCH 30.7 pg 26.6-3 3.0 Not Available [facility] ([facility]) [address] [facility], [place], [address], 07/24/2024 06:20:36 07/23/20 24 07/23/2024 CBC WITH DIFFE RENTI AL/PL ATELE T MCHC 32.6 g/dL 31.5-3 5.7 Not Available [facility] ([facility]) [address] [facility], [place], [address], 07/24/2024 06:20:36 07/23/20 24 07/23/2024 CBC WITH DIFFE RENTI AL/PL ATELE T RDW 13.5 % 11.6-1 5.4 Not Available [facility] ([facility]) [address] [facility], [place], [address], 07/24/2024 06:20:36 07/23/20 24 07/23/2024 CBC WITH DIFFE RENTI AL/PL ATELE T platelets 232 x10e3 /uL 150-45 0 Not Available [facility] ([facility]) [address] [facility], [place], [address], 07/24/2024 06:20:36 07/23/20 24 07/23/2024 CBC WITH DIFFE RENTI AL/PL ATELE T neutrophils 65 % notest ab. Not Available [facility] ([facility]) [address] [facility], [place], [address], 07/24/2024 06:20:36 07/23/20 24 07/23/2024 CBC WITH DIFFE RENTI AL/PL ATELE T lymphs 22 % notest ab. Not Available [facility] ([facility]) [address] [place], [address], 07/24/2024 06:20:36 07/23/20 24 07/23/2024 CBC WITH DIFFE RENTI AL/PL ATELE T monocytes 8 % notest ab. Not Available [facility] ([facility]) [address] [facility], [place], [address], 07/24/2024 06:20:36 07/23/20 24 07/23/2024 CBC WITH DIFFE RENTI AL/PL ATELE T eos 4 % notest ab. Not Available [facility] ([facility]) [address] [facility], [place], [address], 07/24/2024 06:20:36 07/23/20 24 07/23/2024 CBC WITH DIFFE RENTI AL/PL ATELE T basos 1 % notest ab. Not Available [facility] ([facility]) [address] [facility], [place], [address], 07/24/2024 06:20:36 07/23/20 24 07/23/2024 CBC WITH DIFFE RENTI AL/PL ATELE T neutrophils (absolute) 3.8 x10e3 /uL 1.4-7. 0 Not Available [facility] ([facility]) [address] [facility], [place], [address], 07/24/2024 06:20:36 07/23/20 24 07/23/2024 CBC WITH DIFFE RENTI AL/PL ATELE T lymphs (absolute) 1.2 x10e3 /uL 0.7-3. 1 Not Available [facility] ([facility]) [address] [place], [address], 07/24/2024 06:20:36 07/23/20 24 07/23/2024 CBC WITH DIFFE RENTI AL/PL ATELE T monocytes(ab solute) 0.5 x10e3 /uL 0.1-0. 9 Not Available [facility] ([facility]) [address] [facility], [place], [address], 07/24/2024 06:20:36 07/23/20 24 07/23/2024 CBC WITH DIFFE RENTI AL/PL ATELE T eos (absolute) 0.2 x10e3 /uL 0.0-0. 4 Not Available [facility] ([facility]) [address] [place], [address], 07/24/2024 06:20:36 07/23/20 24 07/23/2024 CBC WITH DIFFE RENTI AL/PL ATELE T baso (absolute) 0.0 x10e3 /uL 0.0-0. 2 Not Available [facility] ([facility]) [address] [facility], [place], [address], 07/24/2024 06:20:36 07/23/20 24 07/23/2024 CBC WITH DIFFE RENTI AL/PL ATELE T immature granulocytes 0 % notest ab. Not Available [facility] ([facility]) [address] [place], [address], 07/24/2024 06:20:36 07/23/20 24 07/23/2024 CBC WITH DIFFE RENTI AL/PL ATELE T immature grans (abs) 0.0 x10e3 /uL 0.0-0. 1 Not Available [facility] ([facility]) [address] [place], [address], 07/24/2024 06:20:36 11/19/19 25 11/20/2024 LIPID PANEL cholesterol, total 156 mg/dL 100-19 9 Not Available [facility] ([facility]) [address] [place], [address], 11/20/2024 06:20:25 11/19/19 25 11/20/2024 LIPID PANEL triglyceride s 115 mg/dL 0-149 Not Available [facility] ([facility]) [address] [place], [address], 11/20/2024 06:20:25 11/19/19 25 11/20/2024 LIPID PANEL HDL cholesterol 54 mg/dL >39 Not Available [facility] ([facility]) [address] [place], [address], 11/20/2024 06:20:25 11/19/19 25 11/20/2024 LIPID PANEL VLDL cholesterol pollo 21 mg/dL 5-40 Not Available [facility] ([facility]) [address] [place], [address], 11/20/2024 06:20:25 11/19/19 25 11/20/2024 LIPID PANEL LDL chol calc ([facility]) 81 mg/dL 0-99 Not Available [facility] ([facility]) [address] [place], [address], 11/20/2024 06:20:25 11/19/19 25 11/20/2024 COMP. METAB OLIC PANEL (14) glucose 106 mg/dL 70-99 above high normal Not Available [facility] ([facility]) [address] [place], [address], 11/20/2024 06:20:26 11/19/19 25 11/20/2024 COMP. METAB OLIC PANEL (14) BUN 17 mg/dL 8-27 Not Available [facility] ([facility]) [address] [place], [address], 11/20/2024 06:20:26 11/19/19 25 11/20/2024 COMP. METAB OLIC PANEL (14) creatinine 0.97 mg/dL 0.76-1 .27 Not Available [facility] ([facility]) [address] [place], [address], 11/20/2024 06:20:26 11/19/19 25 11/20/2024 COMP. METAB OLIC PANEL (14) eGFR 78 mL/mi n/1.7 3 >59 Not Available [facility] ([facility]) [address] [place], [address], 11/20/2024 06:20:26 11/19/19 25 11/20/2024 COMP. METAB OLIC PANEL (14) BUN/creatini ne ratio 18 10-24 Not Available [facility] ([facility]) [address] [facility] [place], [address], 11/20/2024 06:20:26 11/19/19 25 11/20/2024 COMP. METAB OLIC PANEL (14) sodium 142 mmol/ L 134-14 4 Not Available [facility] ([facility]) [address] [facility] [place], [address], 11/20/2024 06:20:26 11/19/19 25 11/20/2024 COMP. METAB OLIC PANEL (14) potassium 4.7 mmol/ L 3.5-5. 2 Not Available [facility] ([facility]) [address] [place], [address], 11/20/2024 06:20:26 11/19/19 25 11/20/2024 COMP. METAB OLIC PANEL (14) chloride 104 mmol/ L 96-106 Not Available [facility] ([facility]) [address] [place], [address], 11/20/2024 06:20:26 11/19/19 25 11/20/2024 COMP. METAB OLIC PANEL (14) carbon dioxide, total 22 mmol/ L 20-29 Not Available [facility] ([facility]) [address] [place], [address], 11/20/2024 06:20:26 11/19/19 25 11/20/2024 COMP. METAB OLIC PANEL (14) calcium 9.8 mg/dL 8.6-10 .2 Not Available [facility] ([facility]) [address] [place], [address], 11/20/2024 06:20:26 11/19/19 25 11/20/2024 COMP. METAB OLIC PANEL (14) protein, total 7.0 g/dL 6.0-8. 5 Not Available [facility] ([facility]) [address] [place], [address], 11/20/2024 06:20:26 11/19/19 25 11/20/2024 COMP. METAB OLIC PANEL (14) albumin 4.6 g/dL 3.7-4. 7 Not Available [facility] ([facility]) [address] [facility] [place], [address], 11/20/2024 06:20:26 11/19/19 25 11/20/2024 COMP. METAB OLIC PANEL (14) globulin, total 2.4 g/dL 1.5-4. 5 Not Available [facility] ([facility]) [address] [place], [address], 11/20/2024 06:20:26 11/19/19 25 11/20/2024 COMP. METAB OLIC PANEL (14) bilirubin, total 0.4 mg/dL 0.0-1. 2 Not Available [facility] ([facility]) [address] [facility] [place], [address], 11/20/2024 06:20:26 11/19/19 25 11/20/2024 COMP. METAB OLIC PANEL (14) alkaline phosphatase 74 IU/L 44-121 Not Available [facility] ([facility]) [address] [facility] [place], [address], 11/20/2024 06:20:26 11/19/19 25 11/20/2024 COMP. METAB OLIC PANEL (14) AST (SGOT) 21 IU/L 0-40 Not Available [facility] ([facility]) [address] [facility] [place], [address], 11/20/2024 06:20:26 11/19/19 25 11/20/2024 COMP. METAB OLIC PANEL (14) ALT (SGPT) 19 IU/L 0-44 Not Available [facility] ([facility]) [address] [facility], [place], [address], 11/20/2024 06:20:26 11/19/19 25 11/19/2024 CBC WITH DIFFE RENTI AL/PL ATELE T WBC 6.0 x10e3 /uL 3.4-10 .8 Not Available [facility] ([facility]) [address] [facility], [place], [address], 11/20/2024 06:20:27 11/19/19 25 11/19/2024 CBC WITH DIFFE RENTI AL/PL ATELE T RBC 4.48 x10e6 /uL 4.14-5 .80 Not Available [facility] ([facility]) [address] [facility], [place], [address], 11/20/2024 06:20:27 11/19/19 25 11/19/2024 CBC WITH DIFFE RENTI AL/PL ATELE T hemoglobin 13.4 g/dL 13.0-1 7.7 Not Available [facility] ([facility]) [address] [facility], [place], [address], 11/20/2024 06:20:27 11/19/19 25 11/19/2024 CBC WITH DIFFE RENTI AL/PL ATELE T hematocrit 41.4 % 37.5-5 1.0 Not Available [facility] ([facility]) [address] [place], [address], 11/20/2024 06:20:27 11/19/19 25 11/19/2024 CBC WITH DIFFE RENTI AL/PL ATELE T MCV 92 fL 79-97 Not Available [facility] ([facility]) [address] [facility], [place], [address], 11/20/2024 06:20:27 11/19/19 25 11/19/2024 CBC WITH DIFFE RENTI AL/PL ATELE T MCH 29.9 pg 26.6-3 3.0 Not Available [facility] ([facility]) [address] [facility], [place], [address], 11/20/2024 06:20:27 11/19/19 25 11/19/2024 CBC WITH DIFFE RENTI AL/PL ATELE T MCHC 32.4 g/dL 31.5-3 5.7 Not Available [facility] ([facility]) [address] [facility], [place], [address], 11/20/2024 06:20:27 11/19/19 25 11/19/2024 CBC WITH DIFFE RENTI AL/PL ATELE T RDW 13.6 % 11.6-1 5.4 Not Available [facility] ([facility]) [address] [facility], [place], [address], 11/20/2024 06:20:27 11/19/19 25 11/19/2024 CBC WITH DIFFE RENTI AL/PL ATELE T platelets 234 x10e3 /uL 150-45 0 Not Available [facility] ([facility]) [address] [facility], [place], [address], 11/20/2024 06:20:27 11/19/19 25 11/19/2024 CBC WITH DIFFE RENTI AL/PL ATELE T neutrophils 61 % notest ab. Not Available [facility] ([facility]) [address] [place], [address], 11/20/2024 06:20:27 11/19/19 25 11/19/2024 CBC WITH DIFFE RENTI AL/PL ATELE T lymphs 25 % notest ab. Not Available [facility] ([facility]) [address] [place], [address], 11/20/2024 06:20:27 11/19/19 25 11/19/2024 CBC WITH DIFFE RENTI AL/PL ATELE T monocytes 9 % notest ab. Not Available [facility] ([facility]) [address] [place], [address], 11/20/2024 06:20:27 11/19/19 25 11/19/2024 CBC WITH DIFFE RENTI AL/PL ATELE T eos 4 % notest ab. Not Available [facility] ([facility]) [address] [facility], [place], [address], 11/20/2024 06:20:27 11/19/19 25 11/19/2024 CBC WITH DIFFE RENTI AL/PL ATELE T basos 1 % notest ab. Not Available [facility] ([facility]) [address] [facility], [place], [address], 11/20/2024 06:20:27 11/19/19 25 11/19/2024 CBC WITH DIFFE RENTI AL/PL ATELE T neutrophils (absolute) 3.7 x10e3 /uL 1.4-7. 0 Not Available [facility] ([facility]) [address] [facility], [place], [address], 11/20/2024 06:20:27 11/19/19 25 11/19/2024 CBC WITH DIFFE RENTI AL/PL ATELE T lymphs (absolute) 1.5 x10e3 /uL 0.7-3. 1 Not Available [facility] ([facility]) [address] [place], [address], 11/20/2024 06:20:27 11/19/19 25 11/19/2024 CBC WITH DIFFE RENTI AL/PL ATELE T monocytes(ab solute) 0.6 x10e3 /uL 0.1-0. 9 Not Available [facility] ([facility]) [address] [place], [address], 11/20/2024 06:20:27 11/19/19 25 11/19/2024 CBC WITH DIFFE RENTI AL/PL ATELE T eos (absolute) 0.2 x10e3 /uL 0.0-0. 4 Not Available [facility] ([facility]) [address] [facility], [place], [address], 11/20/2024 06:20:27 11/19/19 25 11/19/2024 CBC WITH DIFFE RENTI AL/PL ATELE T baso (absolute) 0.0 x10e3 /uL 0.0-0. 2 Not Available [facility] ([facility]) [address] [facility], [place], [address], 11/20/2024 06:20:27 11/19/19 25 11/19/2024 CBC WITH DIFFE RENTI AL/PL ATELE T immature granulocytes 0 % notest ab. Not Available [facility] ([facility]) [address] [facility], [place], [address], 11/20/2024 06:20:27 11/19/19 25 11/19/2024 CBC WITH DIFFE RENTI AL/PL ATELE T immature grans (abs) 0.0 x10e3 /uL 0.0-0. 1 Not Available [facility] ([facility]) [address] [facility], [place], [address], 11/20/2024 06:20:27 04/21/20 24 03/06/2024 regad enoso n stres s test (PROC ) No observ ation record ed. [id number] , [place], [address], 04/23/2024 23:19:51 04/21/20 24 03/06/2024 regad enoso n stres s test (PROC ) No observ ation record ed. [address] [id number] [address] , [place], [address], 04/23/2024 23:19:51 07/23/20 24 07/23/2024 XR, hip, unila teral No observ ation record ed. [facility] [address] [address], [place], [address], 07/24/2024 13:16:10 10/08/20 24 10/08/2024 XR, cervi pollo spine No observ ation record ed. [facility] [address], [place], [address], 10/13/2024 09:59:33 10/08/20 24 10/08/2024 XR, cervi pollo spine No observ ation record ed. [facility] [address], [place], [address], 10/13/2024 09:59:34 Result Notes None recorded. Problems Name Problem SNOMED Code Status Onset Date Resolution Date Notes Provider Name and Address Organization Details Recorded Time Hyperlipidemia 30817280 Active 2023 Harika Spear MD Attn: Becky glaser,[address] [facility], [place], [address], [facility] 4 14:46:24 Essential hypertension 58925778 Active 2023 Harika Spear MD Attn: Becky glaser,[address] [facility], [place], [address], [facility] 4 14:46:25 Osteoporosis 26427201 Active 2023 Harika Spear MD Attn: Becky glaser,[address] [facility], [place], [address], [place] [facility] 4 14:46:35 Peripheral arterial occlusive disease 273786299 Active 2023 Harika Spear MD Attn: Becky glaser,[address] [facility], [place], [address], [place] [facility] 4 14:47:12 Kidney stone 64651122 Active 2023 Harika Spear MD Attn: Becky glaser,[address] [facility], [place], [address], [place] [facility] 4 15:43:59 Problem Notes None recorded. Procedures Surgical History Date Name Laterality Status Provider Name and Address Organization Details Recorded Time Appendectomy completed Brashay Spencer, [place] - [facility] 01/08/2024 10:11:03 Imaging Results Imaging Date Name Status LastModified by Organiz ation Details LastModified Time 03/06/2024 regadenoson stress test (PROC) completed [address], [place], [address], 04/23/2024 23:19:51 03/06/2024 regadenoson stress test (PROC) completed [address], [place], [address], 04/23/2024 23:19:51 07/23/2024 XR, hip, unilateral completed [facility] [address], [place], [address], 07/24/2024 13:16:10 10/08/2024 XR, cervical spine completed [facility] [address], [place], [address], 10/13/2024 09:59:33 10/08/2024 XR, cervical spine completed [facility] [address], [place], [address], 10/13/2024 09:59:34 Procedure Notes None recorded. Medical Equipment None Reported. Allergies Allergen ID Allergen Name Allergen Category Reaction Reaction Severity Criticality Documentation Date Start Date Code Code System Note Provider Name and Address Organization Details Recorded Time 949181 Xanax medicatio n Not available Not available Not available 01/08/2024 3 RxNorm Not Available Not Available Not Available Medications Name Sig Start Date Stop Date Status Note LastModified by Organization Details LastModified Time doxycycline hyclate 100 mg capsule 01/07 completed Not Available Not Available Not Available atorvastatin 10 mg tablet TAKE 1 TABLET BY MOUTH ON MONDAYS, , AND Fridays active Not Available Not Available Not Avai lable ibuprofen 800 mg tablet 01/07 completed Not Available Not Available Not Available tizanidine 4 mg tablet TAKE 1 TABLET BY MOUTH EVERY NIGHT AT BEDTIME NEEDED FOR NECK SPASM active Not Available Not Available No t Available meloxicam 15 mg tablet active Not Available Not Available No t Available amlodipine 5 mg tablet TAKE 1 TABLET BY MOUTH EVERY DAY 2024 active Not Available Not Available Not Leoncade fritz tramadol 50 mg tablet 01/07 completed Not Available Not Available Not Available amoxicillin 500 mg tablet 01/07 completed Not Available Not Available Not Available amoxicillin 875 mg tablet 01/07 completed Not Available Not Available Not Available losartan 25 mg tablet TAKE 1 TABLET BY MOUTH ONCE DAILY active Not Available Not Available No t Available methylpredni solone 4 mg tablets in a dose pack 01/07 completed Not Available Not Available Not Available amoxicillin 875 mg-potassium clavulanate 125 mg tablet 01/07 completed Not Available Not Available Not Available ezetimibe 10 mg tablet TAKE 1 TABLET BY MOUTH EVERY DAY active Not Available Not Available No t Available rosuvastatin 10 mg tablet active Not Available Not Available Not Available aspirin 81 mg capsule Take 1 capsule every day by oral route. active Not Available Not Available No t Available Vitals Date Recorded Body height Body mass index (BMI) Body weight Heart rate Oxygen saturation Oxygen saturation in Arterial blood by Pulse oximetry Systolic blood pressure Diastolic blood pressure Provider Name and Address Organization Details Last Updated DateTime 4 177.8 cm 29.1 kg/m2 10857.1 7 g 87 /min 98 % 98 % 112 mm[Hg] 68 mm[Hg] Tia Bradford MA [facility] 4 15:47:58 Date Recorded Body height Body mass index (BMI) Body weight Heart rate Oxygen saturation Oxygen saturation in Arterial blood by Pulse oximetry Systolic blood pressure Diastolic blood pressure Provider Name and Address Organization Details Last Updated DateTime 4 177.8 cm 29.2 kg/m2 13826.7 7 g 64 /min 95 % 95 % 110 mm[Hg] 72 mm[Hg] Virginia Palmer MA [facility] 4 09:43:06 Date Recorded Pain severity - 0-10 verbal numeric rating [Score] - Reported Provider Name and Address Organization Details Last Updated DateTime 04/30/2024 Janna Nina [facility] 04/30/2024 09:46:53 Date Recorded Body height Body mass index (BMI) Body weight Heart rate Oxygen saturation Oxygen saturation in Arterial blood by Pulse oximetry Systolic blood pressure Diastolic blood pressure Provider Name and Address Organization Details Last Updated DateTime 4 177.8 cm 28.7 kg/m2 32957.5 5 g 72 /min 97 % 97 % 120 mm[Hg] 72 mm[Hg] Dianna Parkhill [facility] 4 10:51:27 Date Recorded Body height Body mass index (BMI) Body weight Heart rate Oxygen saturation Oxygen saturation in Arterial blood by Pulse oximetry Systolic blood pressure Diastolic blood pressure Provider Name and Address Organization Details Last Updated DateTime 4 177.8 cm 28.7 kg/m2 19191.4 7 g 67 /min 99 % 99 % 110 mm[Hg] 74 mm[Hg] [facility] 4 17:03:51 Date Recorded Body height Body mass index (BMI) Body weight Heart rate Oxygen saturation Oxygen saturation in Arterial blood by Pulse oximetry Systolic blood pressure Diastolic blood pressure Provider Name and Address Organization Details Last Updated DateTime 5 177.8 cm 29.1 kg/m2 57579.2 5 g 70 /min 98 % 98 % 112 mm[Hg] 70 mm[Hg] Tia Bradford MA [facility] 5 09:23:11 Social History Question Answer Notes LastModified by Organizat ion Details LastModified Time Tobacco Smoking Status Former Smoker Quit in the early s Edith marmolejo [facility] 04/30/2024 09:49:12 Do You Have An Advance Directive? Yes Information not available 04/30/2024 What Is Your Level Of Alcohol Consumption? None Information not available 01/08/2024 Are You Blind Or Do You Have Difficulty Seeing? Yes Blurry In Left Eye Information not available 04/30/2024 What Is Your Level Of Caffeine Consumption? Occasional Information not available 01/08/2024 In The 14 Days Before Symptom Onset, Have You Had Close Contact With A Laboratory-confir med COVID-19 While That Case Was Ill? No Information not available 07/23/2024 In The 14 Days Before Symptom Onset, Have You Had Close Contact With A Person Who Is Under Investigation For COVID-19 While That Person Was Ill? No Information not available 07/23/2024 Have You Been To An Area Known To Be High Risk For COVID-19? No Information not available 07/23/2024 Are You Currently Employed? No Information not available 04/30/2024 Are You Deaf Or Do You Have Serious Difficulty Hearing? No Information not available 01/08/2024 What Type Of Diet Are You Following? REGULAR Information not available 01/08/2024 What Is The Highest Grade Or Level Of School You Have Completed Or The Highest Degree You Have Received? [id number] Information not available 04/30/2024 Are There Any Guns Present In Your Home? No Information not available 01/08/2024 In The Past 7 Days, How Many Days Did You Exercise? 7 Information not available 04/30/2024 On The Days When You Exercised, How Long Did You Exercise Each Day (in Minutes)? 60 Information not available 04/30/2024 How Intense Was Your Typical Exercise? Moderate (brisk Walking) Information not available 04/30/2024 In The Past 7 Days, How Much Pain Have You [place]? A Lot Information not available 04/30/2024 In General, Would You Say You Health Is: Good Information not available 04/30/2024 How Would You Describe The Condition Of Your Mouth And Teeth- Including False Teeth Or Dentures? Good Information not available 04/30/2024 Each Night, How Many Hours Of Sleep Do You Get? 5 Information no t available 04/30/2024 Has Anyone Ever Told You That You Snore? No Information not available 04/30/2024 In The Past 7 Days, How Often Have You [place] Sleepy In The Daytime? Sometimes Information not available 04/30/2024 # Alcohol Drinks Per Week 0 Information not available 04/30/2024 What Was The Date Of Your Most Recent Tobacco Screening? 11/19/2024 [email or web address] Information not available 11/19/2024 What Is Your Current Pack Years? 10packyears Information not available 01/08/2024 What Is Your Relationship Status? Information not available 04/30/2024 Do You Use Your Seat Belt Or Car Seat Routinely? Yes Information not available 01/08/2024 Do You Have Smoke And Carbon Monoxide Detectors In Your Home? Yes Information not available 01/08/2024 How Much Tobacco Do You Smoke? 1 PPD Information not available 01/08/2024 Do You Feel Stressed (tense, Restless, Nervous, Or Anxious, Or Unable To Sleep At Night)? [id number] Information not available 04/30/2024 Do You Use Any Illicit Or Recreational Drugs? No Information not available 01/08/2024 Do You Use Sunscreen Routinely? No Information not available 01/08/2024 Has Tobacco Cessation Counseling Been Provided? No Information not available 04/30/2024 How Many Years Have You Smoked Tobacco? 5 Information not available 01/08/2024 Do You Or Have You Ever Used Any Other Forms Of Tobacco Or Nicotine? No Information not available 01/08/2024 Sex: Male Functional Status Question Answer Note LastModified by Organizat ion Details LastModified Time Are you able to care for yourself? Yes Information not available 01/08/2024 What is your exercise level? Moderate walks 3-4 miles daily Information not available 04/30/2024 Mental Status None recorded. Family History Relationship Description Onset Age of this Age Resolved Age Notes LastModified by Organization Details LastModified Time Father Dementia [email or web address] Not availa ble 01/08/2024 10:13:22 Father Malignant tumor of prostate [email or web address] Not available 03/2024 10:13:51 Brother Diabetes mellitus [email or web address] Not available 03/2024 10:13:31 Medical History Condition Response Coronary Artery Disease N Other N Atrial Fibrillation N High Blood Pressure Y Depression N COPD N Blood Clots N Anxiety Disorder N Muscle, Joint, or Bone Problems N Acid Reflux (GERD) N Cancer N Stroke N High Cholesterol Y Liver Disease N Headaches N Kidney or Bladder Problems N Thyroid Problems N GI Problems N Skin Problems N Anemia N Heart Attack ([place]) N Diabetes N Seizures/Epilepsy N Asthma N Allergies N Have you had a PSA blood test in the t year? Y Hepatitis N Osteoporosis N Heart Failure N Immunizations Vaccine Type Date Status Note Provider Nam e and Address Organization Details Recorded Time Influenza, high-dose, quadrivalent, PF 0 completed Edith [place] null, [place] [facility] 04/29/2024 15:10:55 Influenza, high-dose, quadrivalent, PF 2 completed Edith [place] [facility] 04/29/2024 15:10:55 Influenza, high-dose, quadrivalent, PF 1 completed Edith [place] [facility] 04/29/2024 15:10:55 COVID-19, mRNA, LNP-S, PF, 30 mcg/0.3 mL dose 1 completed Edith [place] [facility] 04/29/2024 15:10:55 COVID-19, mRNA, LNP-S, PF, 30 mcg/0.3 mL dose 1 completed Edith [place] [facility] 04/29/2024 15:10:55 COVID-19, mRNA, LNP-S, PF, 30 mcg/0.3 mL dose, yahaira-sucrose 2 completed Edith [place] [facility] 04/29/2024 15:10:55 Pneumococcal conjugate PCV 13 8 completed Edith [place] [facility] 04/29/2024 15:10:55 Influenza, high-dose, trivalent, PF 8 completed Edith [place] [facility] 04/29/2024 15:10:55 Influenza, high-dose, trivalent, PF 9 completed Edith [place] [facility] 04/29/2024 15:10:55 Influenza, high-dose, trivalent, PF 7 completed Edith [place] [facility] 04/29/2024 15:10:55 Influenza, split virus, trivalent, preservative 5 completed Edith [place] [facility] 04/29/2024 15:10:55 Influenza, split virus, trivalent, preservative 3 completed Edith Nina null, [place] - [facility] 04/29/2024 15:10:55 Influenza, split virus, quadrivalent, PF 7 completed Edith Nina [place], [place] [facility] 04/29/2024 15:10:55 Influenza, split virus, quadrivalent, PF 5 completed Edith Nina null, [place] [facility] 04/29/2024 15:10:55 pneumococcal polysaccharide PPV23 4 completed Harika Spear MD Attn: Accounting,[address] [place], [address], [facility] 05/03/2024 11:48:13 Past Encounters Encounter ID Performer Location Encounter Start Date Encounter Closed Date Diagnosis/Indication Diagnosis SNOMED-CT Code Diagnosis ICD10 Code Diagnosis Note [id number] MD Nita Yee (Adult Med) [address] [place] [address] 01/08/2024 09:43:19 01/08/2024 11:02:12 Essential hypertension 78970068 I10 Screening for malignant neoplasm of prostate 943361587 Z12.5 [id number] Harika Spear MD [facility] [address] [place] [address] 04/17/2024 14:36:11 04/17/2024 16:38:00 Obesity 296627000 E66.8 Hyperlipidemia 71158823 E78.5 Essential hypertension 64630746 I10 Osteoporosis 48191384 M8 1.0 Peripheral arterial occlusive disease 214302323 I73.9 Thyroid nodule 803297618 E04.[address] [id number] MD Nita Yee (Adult Med) [address] [place] [address] 04/30/2024 09:26:11 04/30/2024 10:08:23 Adult health examination 647057136 Z00.00 Health Risk Assessment collected and reviewed Administra tion of pneumococcal vaccine 35639417 Z23 [id number] MD Nita Yee (Adult Med) [address] [place] [address] 07/23/2024 10:22:22 07/23/2024 11:29:07 Overweight 720028125 E66.3 Essential hypertension 80210318 I10 Hyperlipidemia 45177193 E78.5 Pain of le ft hip joint 5828160389 31046 M25.552 Peripheral arterial occlusive disease 992408507 I73.9 [id number] MD Nita Yee (Adult Med) [address] [place] [address] 10/07/2024 16:26:52 10/07/2024 17:53:56 Body mass index 25-29 - overweight 706633266 Z68.28 Overweight 507029876 E66 .3 Neck pain 33511866 M54.2 [id number] MD Nita Yee (Adult Med) [address] [place] [address] 11/19/2024 08:51:42 11/19/2024 10:00:40 Body mass index 25-29 - overweight 219345907 Z68.29 Overweight 861055114 E66 .3 Essential hypertension 87830752 I10 Hyperlipidemia 26957467 E78.5 Peripheral arterial occlusive disease 957711750 I73.9 Health Concerns Section Related Observation LastModified by Organization Detai ls LastModified Time None Recorded Concern Status LastModified by Organization Details LastModified Time None Recorded Advance Directives Directive Y: Payers Encounter Date Sequence Insurance Name Policy Number Policy Roberts Covered Member ID Roberts Member ID Guarantor Name 04/17/2024 3 [place] Nic 0 Monroe [id number] Nic O Monroe 04/17/2024 2 [facility] [id number] Nic O Monroe [id number] Nic O Monroe 04/30/2024 3 [place] 0 [place] [id number] Nic O Monroe 04/30/2024 2 [facility] ([place]) [id number] Nic O Monroe [id number] Nic O Monroe 07/23/2024 3 [place] 0 [place] [id number] Nic O Monroe 07/23/2024 2 [facility] ([place]) [id number] Nic O Monroe [id number] Nic O Monroe 10/07/2024 3 [place] Nic 0 Monroe [id number] Nic O Monroe 10/07/2024 2 [facility] [id number] Nic O Monroe [id number] Nic O Monroe 11/19/2024 2 [facility]) [id number] Nic O Monroe [id number] Nic O Monroe 11/19/2024 1 MEDICARE B: [employer] MEDICARE Nic O Monroe [id number] Nic Klein Monroe Notes Date Note Type Note Provider Name and Address Organization Details Recorded Time 04/17/2024 text/html Follow-up of med ical problems. Hypertension no headache no dizziness. Peripheral arterial occlusive disease he does not have any claudication. Osteoporosis no bone teofilo hyperlipidemia taking his rosuvastatin Harika Spear MD Attn: Accounting[address] [facility], [place], [address], [facility] 04/19/2024 15:13:58 04/30/2024 text/html MAW 2Reported bypatient.Diet and Nutrition:healthy diet Fracture Risk:no history of fractures; no sudden unexplained fractures Concentration and Memory:no decreased concentrating ability; no memory lapses or loss; does not forget words Speech/Motor difficulties:no speech difficulties; no difficulty expressing formulated concepts; no difficulty with fine manipulative tasks; no difficulty writing/copying; no slowed reaction time; does not knock things over when trying to pick them up Hearing:no loss of hearing Vision:blurred vision(left eye) Activities of Daily Living:able to bathe with limited or no assistance; able to contol urination and bowels; able to dress with limited or no assistance; able to feed self with limited or no assistance; able to get out of chair or bed with limited or no assistance; able to groom with limited or no assistance; able to toilet with limited or no assistance Instrumental Activities of Daily Living:able to do house work with limited or no assistance; able to grocery shop with limited or no assistance; able to manage medications with limited or no assistance; able to manage money with limited or no assistance; able to prepare meals with limited or no assistance; able to use the phone with limited or no assistance Falls Risk Assessment:no frequent falls while walking; no fall since last visit; no dizziness/vertigo; fall(s) in the past year Home Safety:reviewed sun protection; no unsafe maribel hazzards; no unsafe stairs; working smoke/CO detectors; practicing 'safer sex'; no fire arms; good lighting in the home;does not have hand bars in the bathroom/shower Medicare wellness Harika Spear MD Attn: Accounting[address] [place], [address], [facility] 05/03/2024 11:48:43 07/23/2024 text/html Follow-up of med ical problems. Hypertension no headache no dizziness. Peripheral arterial occlusive disease he does not have any claudication. Osteoporosis no bone teofilo hyperlipidemia taking his rosuvastatin. He does complain of a little bit of pain in his left hip for a couple of weeks without Harika Spear MD Attn: Accounting[address] [place], [address], [facility] 08/02/2024 16:02:53 10/07/2024 text/html blowing some moon ves with a leaf blower 4 days ago and now he has gotten neck pain radiates down the left arm a little bit worse when he turns his head to the left Tylenol with a little bit of relief he has had no loss of function of arms or legs Harika Spear MD Attn: Accounting[address] [place], [address], [facility] 10/07/2024 21:22:54 11/19/2024 text/html follow up of med ical problems incidentally neck feels better he was here last month x-ray shows some cervical spondylosis got hurt after shoveling some snow in his doing better. Hypertension he is brought in numbers and they agreed looked favorable no systolic blood pressures above 140 only 1 above 80 on the diastolic side. Dyslipidemia does try to watch diet peripheral arterial occlusive disease he has gotten no claudication Harika Spear MD Attn: Accounting[address] [place], [address], [facility] 11/23/2024 16:30:38
--- OUTSIDE RECORDS SUMMARY | 2024-12-26 05:04 | XMS_ITS | Encounter Summary ---
Author Organization [facility] Address [address] [place] [address] Phone Care Team Providers Care Anatomy Teacher Name Role Phone Kiel Spear MD Primary Care Provider + [phone] Hoang Green MD Unavailable [phone] Encounter Details Date Type Department Care Team (Latest Contact Info) Description 11/03/2021 Orders Only [facility] Scanning, Provider Social History Tobacco Use Types Packs/Day Years Used Date Smoking Tobacco: Former Cigarettes 0.5 10 1 969 - 1978 Smokeless Tobacco: Never Alcohol Use Standard Drinks/Week Comments Not Currently 0 (1 standard drink = 0.6 oz pur e alcohol) Sex and Gender Information Value Date Recorded Sex Assigned at Not on file 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 Gender Identity Not on file Sexual Orientation Not on file documented as of this encounter Plan of Treatment Not on file documented as of this encounter Procedures Procedure Name Priority Date/Time Associated Diagnosis Comments CARDIOLOGY DOCUMENT SCAN 11/03/2021 documented in this encounter Results * CARDIOLOGY DOCUMENT SCAN (11/03/2021) Anatomical Region Laterality Modality Other us Provider Scanning CV CARDIAC SERVICES PROCEDURES Final Result documented in this encounter Visit Diagnoses Not on filedocumented in this encounter Care Teams Anatomy Teacher Relationship Specialty Start Date End Date Kiel Spear MD PCP - General Internal Medicine 11/30/20 Hoang Green MD Surgeon Vascular Surgery 12/21/20 documented as of this encounter
--- OUTSIDE RECORDS SUMMARY | 2024-12-26 05:04 | XMS_ITS | Clinical Summary ---
Author Organization [facility] Care Team Providers Care Family Welfare Social Work Professor Name Role Phone Unavailable Primary Care Provider Unavailabl e Social History Tobacco Use Types Packs/Day Years Used Date Smoking Tobacco: Never Assessed Sex and Gender Information Value Date Recorded Sex Assigned at Not on file Legal Sex Male 8:04 PM CDT Gender Identity Not on file Sexual Orientation Not on file Plan of Treatment Health Maintenance Due Date Last Done Comments Hepatitis C Virus (HCV) Screening 1940 TdaP Immunization 1940 Zoster Immunization (1 of 2) 1992 Respiratory Syncytial Virus (RSV) Immunization (Adult) (1 - 1-dose 75+ series) 2017 Pneumococcal Immunization (50+ years) (2 of 2 - PPSV23) 05/01/2019 05/01/2018 Influenza Immunization (#1) 07/06/202409/06, 08/28/2018, 10/12/2017, Additional history exists SARS-COV-2 Immunization ( season) 2024 06/25/2021, 06/04/2021 Pneumococcal Immunization Combined Discontinued 05/01/2018 Hepatitis B Immunization Aged Out No longer eligible based on patient's age to complete this topic Meningococcal Immunization (ACWY) Aged Out No longer eligible based on patient's age to complete this topic Rotavirus Immunization Aged Out No lo nger eligible based on patient's age to complete this topic
[2024-12-26 10:38] VITALS: BP 146/87; PULSE 79; RESP 20; TEMP 36; O2SAT 100; BMI 29.3
[2024-12-26] MEDS: LACTATED RINGERS 1,000 ML 150 ML IV CONT (10:50)
--- NOTE | 2024-12-26 11:16 | PM.HPGS ---
History of Present Illness History of Present Illness Consent: Risks, benefits, and alternatives have been discussed and questions answered. Patient agrees to proceed with procedure. Chief complaint: Screening Narrative: Nic Monroe is a 84 year old male with colon polyp in 2019 Review of Systems Review of Systems: All systems reviewed & are unremarkable except as noted in HPI and below [facility] Past Medical History Medical History (Updated 09/26/22 @ 11:30 by Araceli Anderson, [place]) Family hx of colon cancer Hx of adenomatous colonic polyps Overweight (BMI 25.0-29.9) Arthritis TERRELL (obstructive sleep apnea) Hypercholesterolemia CAD (coronary artery disease) Surgical History Surgical History S/P AAA repair 12/20/20endovascular AAA repair with Dr. Green in [facility]. pt maintained on aspirin therapy History of coronary artery stent placement x 2007 Status post dilation of esophageal narrowing Social History Social History Smoking packs per day: 1 Smoking cigarettes per day: 20.0 Years smoked: 7 Smoking pack-years: 7.00 Smoking status: Former smoker Tobacco type: cigarettes Smoking end date: 05/05/79 Alcohol intake: current Drinks per week: 1 Alcohol use details: 1 BOTTLE BEER/WEEK Substance use: never Substance use type: does not use Living arrangements: with family Spiritual care concerns: No Meds Home Medications and Allergies Home Medications ?Medication ?Instructions ?Recorded ?Confirmed ?Type aspirin 81 mg tablet,delayed 81 mg PO DAILY 06/23/20 12/26/24 History release (Adult Low Dose Aspirin) atorvastatin 10 mg tablet 10 mg PO QAM 11/22/20 12/26/24 History melatonin 3 mg tablet 3 mg PO HS PRN Insomnia 11/22/20 12/11/24 History vitamins A,C,B-aiqu-hxsntt 2,148 1 tablet PO BID 11/22/20 12/26/24 History mcg-113 mg-45 mg-17.4 mg tablet (PreserVision AREDS) hydrocodone 5 mg-acetaminophen 325 1 - 2 tablet PO Q6H PRN pain #20 01/21/21 12/26/24 Rx mg tablet tabs amlodipine 5 mg tablet mg 12/11/24 History losartan 25 mg tablet 25 mg PO DAILY 12/11/24 12/26/24 History Allergies Allergy/AdvReac Type Severity Reaction Status Date / Time alprazolam (From Xanax) AdvReac Severe Jittery, Verified 12/26/24 10:35 AGITATION Vital Signs Vital Signs - 24 hr 12/26/24 10:38 Temperature 96.8 F L Pulse Rate 79 Respiratory Rate 20 Blood Pressure 146/87 H Pulse Oximetry 100 Oxygen Delivery Room Air Exam Const: General: comfortable and no acute distress HENMT: Face/Nose/Sinus: Normal nares present Eyes: General: appearance normal, both eyes and all related structures Neck: Neck: no JVD Resp: Auscultation: clear to auscultation bilaterally Cardio: Rate: regular rate Rhythm: regular rhythm GI: Inspection: non-distended GI Palp: Yes Soft to palpation Skin: General skin exam: normal color Neuro: Speech: normal speech Extrem: General: normal to inspection Psych: Mental Status: mental status grossly normal Assessment and Plan Assessment and plan (1) Hx of adenomatous colonic polyps: Code(s): Z86.010 - Personal history of colon polyps Status: Acute Assessment and Plan: colonoscopy
--- NOTE | 2024-12-26 11:17 | WPDANESEPPF ---
Anes - Initial Pre Proc Eval Procedure: Operation Date: 12/26/24 12:30 Proposed Procedures p Screening Colonoscopy - Louis Zuñiga MD Date/Time: 12/26/24 11:17 Surgeon: Louis Zuñiga MD Pre Op Diagnosis: Screening Patient Data Age: 84 Gender: M Height: 1.75 m Weight: 90.1 kg Last Vital Signs Temp 36.0 C L 12/26/24 10:38 Pulse 79 12/26/24 10:38 Resp 20 12/26/24 10:38 BP 146/87 H 12/26/24 10:38 Pulse Ox 100 12/26/24 10:38 O2 Del Method Room Air 12/26/24 10:38 Allergies Allergy/AdvReac Type Severity Reaction Status Date / Time alprazolam (From Xanax) AdvReac Severe Jittery, Verified 12/26/24 10:35 AGITATION Home Medications ?Medication ?Instructions ?Recorded ?Confirmed ?Type aspirin 81 mg tablet,delayed 81 mg PO DAILY 06/23/20 12/26/24 History release (Adult Low Dose Aspirin) atorvastatin 10 mg tablet 10 mg PO QAM 11/22/20 12/26/24 History melatonin 3 mg tablet 3 mg PO HS PRN Insomnia 11/22/20 12/11/24 History vitamins A,C,J-yaqb-esrfuu 2,148 1 tablet PO BID 11/22/20 12/26/24 History mcg-113 mg-45 mg-17.4 mg tablet (PreserVision AREDS) hydrocodone 5 mg-acetaminophen 325 1 - 2 tablet PO Q6H PRN pain #20 01/21/21 12/26/24 Rx mg tablet tabs amlodipine 5 mg tablet mg 12/11/24 History losartan 25 mg tablet 25 mg PO DAILY 12/11/24 12/26/24 History Patient hx anesthesia problems: none Family hx anesthesia problems: none Results Review: All pre-operative results and documents have been reviewed as part of the pre-operative evaluation. [facility] Past Medical History Medical History (Updated 09/26/22 @ 11:30 by Araceli Anderson, [place]) Family hx of colon cancer Hx of adenomatous colonic polyps Overweight (BMI 25.0-29.9) Arthritis TERRELL (obstructive sleep apnea) Hypercholesterolemia CAD (coronary artery disease) Surgical History Surgical History S/P AAA repair 12/20/20endovascular AAA repair with Dr. Green in [facility]. pt maintained on aspirin therapy History of coronary artery stent placement x 2007 Status post dilation of esophageal narrowing Social History Social History Smoking packs per day: 1 Smoking cigarettes per day: 20.0 Years smoked: 7 Smoking pack-years: 7.00 Smoking status: Former smoker Tobacco type: cigarettes Smoking end date: 05/05/79 Alcohol intake: current Drinks per week: 1 Alcohol use details: 1 BOTTLE BEER/WEEK Substance use: never Substance use type: does not use Living arrangements: with family Spiritual care concerns: No Anes - Eval Final PreProcedure Day of Procedure 12/26/24 11:17 Patient weight: overweight Heart: regular rate and rhythm Lungs: clear to auscultation Airway: Mallampati scale class II Neurological: alert and oriented Last oral intake: >/= 8 hours ASA classification: III Emergent: no Anesthetic plan: proceed Anesthesia type and monitoring: general GIVS and standard monitoring Results Review: All pre-operative results and documents have been reviewed as part of the pre-operative evaluation. Informed Consent: The patient's anesthetic plan and its attendant risks and benefits were discussed with the patient/family/POA. Questions were solicited and answers provided to the satisfaction of the patient/family/POA.
[2024-12-26 11:38] VITALS: BP 109/76; PULSE 57; RESP 16; O2SAT 97
[2024-12-26 11:48] VITALS: BP 116/72; PULSE 57; RESP 15; O2SAT 97
[2024-12-26 11:58] VITALS: BP 124/78; PULSE 59; RESP 14; O2SAT 99
== END 2024-12-26 12:17 | disposition home or self-care (01) ==
PROVIDERS: PCP Internal Medicine; Visit Provider Internal Medicine Gastroenterology
PROC: 0DJD8ZZ Inspection of Lower Intestinal Tract, Via Natural or Artificial Opening Endoscopic (ICD-10-PCS; CPT 45378; principal; 2024-12-26 12:30)
DX: Z12.11 Encounter for screening for malignant neoplasm of colon (principal); D12.0 Benign neoplasm of cecum; D12.2 Benign neoplasm of ascending colon; D12.4 Benign neoplasm of descending colon; D12.8 Benign neoplasm of rectum; Z87.891 Personal history of nicotine dependence
CPT/HCPCS: 45385; 88305; J2003; J2704; J7120

== ENCOUNTER 2025-05-11 14:02 | Outpatient (CLI) | payer MEDICARE, OTHER, SELFPAY ==
--- NOTE | ~2025-05-11 | MR_ITS ---
MRI of the lumbar spine Clinical History: Lower extremity weakness Technique: Axial T2-weighted images, and sagittal T1-weighted, T2-weighted, and T2 fat-sat images wer e acquired. Findings: There is no fracture of the lumbar spine. There is 5 mm anterolisthesis of L4 over L5. Schm orl's node present at the supraclavicular region of L3. No suspicious bone marrow signal abnormality seen. At L1-L2, there is minimal disc bulge with moderate to advanced facet arthropathy. No central canal s tenosis. There is moderate bilateral neural foraminal narrowing. At L2-L3, there is diffuse disc bulge and severe facet arthropathy. There is moderate to severe spina l canal stenosis/thecal sac compression. There is advanced bilateral neural foraminal narrowing. L3-L4, there is diffuse disc bulge and severe facet arthropathy. There is mild central canal stenosis . There is advanced bilateral neural foraminal narrowing, right worse than left. At L4-L5, there is diffuse disc bulge/uncovering with severe facet arthropathy. There is moderate spi nal canal stenosis/thecal sac compression. There is severe bilateral neural foraminal conference. At L5-S1, there is diffuse disc bulge with severe facet arthropathy. No central canal stenosis or karuna ral foraminal narrowing. Paravertebral soft tissues are unremarkable. Impression: Severe degenerative spondylosis, as detailed above. 5 mm anterolisthesis of L4 over L5. Reviewed, dictated and finalized at [facility]. Impression: Severe degenerative spondylosis, as detailed above. 5 mm anterolisthesis of L4 over L5.
== END 2025-05-11 14:03 | disposition home or self-care (01) ==
LOC: MICIMG 14:02
PROVIDERS: PCP Internal Medicine; Visit Provider Internal Medicine
DX: M47.816 Spondylosis without myelopathy or radiculopathy, lumbar region (principal); M43.16 Spondylolisthesis, lumbar region; R29.898 Other symptoms and signs involving the musculoskeletal system
CPT/HCPCS: 72148

== ENCOUNTER 2025-06-10 09:11 | Outpatient (CLI) | payer MEDICARE, OTHER, SELFPAY ==
--- OUTSIDE RECORDS SUMMARY | 2025-06-10 09:35 | XMS_ITS | Clinical Summary ---
Author Organization [facility] Care Team Providers Care Founder Chairman And Chief Creative Officer Name Role Phone Unavailable Primary Care Provider [...] Immunization (50+ years) (2 of 2 - PCV20 or PCV21) 05/01/2019 05/01/2018 SARS-COV-2 Immunization (3 - season) 2024 06/25/2021, 06/04/2021 Influenza Immunization (#1) 07/06/202509/06, 08/28/2018, 10/12/2017, Additional history exists Pneumococcal Immunization Combined Discontinued 05/01/2018 Hepatitis B Immunization Aged Out No longer eligible based on patient's age to complete this topic Human Papillomavirus (HPV) Immunization Aged Out No longer eligible based on patient's age to complete this topic Meningococcal Immunization (ACWY) Aged Out No longer eligible based on patient's age to complete this topic Rotavirus Immunization Aged Out No lo nger eligible based on patient's age to complete this topic
--- OUTSIDE RECORDS SUMMARY | 2025-06-10 09:35 | XMS_ITS | Clinical Summary ---
Author Organization [facility] Address [address] [place] [id number] Care Team Providers Care Tax Associate Name Role Phone Kiel Spear MD Primary Care Provider [phone] Allergies Active Allergy Reactions Criticality Noted Date [...] Td Vaccines ( 1 - Tdap) 1961 Pneumococcal Vaccine: 50+ Ye ars (1 of 1 - PCV) 1992 Zoster Vaccines (1 of 2) 1992 Annual Medicare Wellness Visit 2007 RSV Immunization or 60+ Years (1 - 1-dose 75+ series) 2017 COVID-19 Vaccine (1 - 2023-2 5 season) 2024 Meningococcal B Vaccine Aged Out No l onger eligible based on patient's age to complete this topic Meningococcal Vaccine Aged Out No yolanda armando eligible based on patient's age to complete this topic RSV Immunizations Under 20 Months Aged Out No longer eligible based on patient's age to complete this topic Insurance Care Teams Tax Associate Relationship Specialty Start Date End Date Kiel Spear MD PCP - General INTERNAL MEDICINE 10/07/19
[2025-06-10 09:46] LABS: Hematocrit 40.6 % (42.0-52.0); Hemoglobin 13.1 g/dL (14.0-18.0); Mean Corpuscular HGB Conc 32.3 g/dl (32-36); Mean Corpuscular Hemoglobin 30.2 pg (26-34); Mean Corpuscular Volume 93.5 fl (80-100); Platelet Count Result 208 k/mm3 (150-375); Red Blood Count 4.34 M/mm3 (4.6-6.20); White Blood Count 6.0 K/mm3 (4.5-10.0)
[2025-06-10 10:12] LABS: Alanine Aminotransferase 15 U/L (6-50); Albumin Level 4.2 g/dL (3.5-5.1); Alkaline Phosphatase 62 U/L (38-126); Anion Gap 7 mmol/L (4-12); Aspartate Amino Transferase 24 U/L (17-59); Bilirubin,Total 0.3 mg/dL (0.2-1.3); Blood Urea Nitrogen 13 mg/dL (9-20); Calcium 9.5 mg/dL (8.4-10.2); Carbon Dioxide 26 mmol/L (22-30); Chloride 106 mmol/L (98-107); Estimated Glomerular Filt Rate > 60; Glucose 97 mg/dL (65-110); Potassium 4.4 mmol/L (3.4-5.0); Sodium 139 mmol/L (137-145); Total Protein 7.0 g/dL (6.3-8.2)
== END 2025-06-10 09:12 | disposition home or self-care (01) ==
LOC: ANHLAB 09:14
PROVIDERS: PCP Internal Medicine; Visit Provider Nurse Practitioner
DX: R53.1 Weakness (principal); R29.898 Other symptoms and signs involving the musculoskeletal system
CPT/HCPCS: 36415; 80053; 85027

== ENCOUNTER 2025-06-16 08:05 | Outpatient (CLI) | payer MEDICARE, OTHER, SELFPAY ==
--- OUTSIDE RECORDS SUMMARY | 2025-06-16 08:13 | XMS_ITS | Clinical Summary ---
Author Organization [facility] Care Team Providers Care Strategic Planning Specialist Name Role Phone Unavailable Primary Care Provider [...]
--- OUTSIDE RECORDS SUMMARY | 2025-06-16 08:13 | XMS_ITS | Clinical Summary ---
Author Organization [facility] Address [address] [place] [id number] Care Team Providers Care Anesthesia Attending Name Role Phone Kiel Spear MD Primary Care Provider [phone] Allergies Active Allergy Reactions Criticality Noted Date [...] to complete this topic Insurance Care Teams Anesthesia Attending Relationship Specialty Start Date End Date Kiel Spear MD PCP - General INTERNAL MEDICINE 10/07/19
--- NOTE | 2025-06-16 09:20 | NEURO_ITS ---
Impression: # Complains of gait dysfunction, says ?I am not diabetic? # Axonal neuropathy # Neurogenic changes noted on Needle/EMG exam more pronounced distally but no fibrillations. # Clinical correlation recommended Nerve Conduction Studies ?Stim Site NR Peak (ms) P-T Amp (?V) Site1 Site2 Delta-P (ms) Dist (cm) Carlos (m/s) Left Sup Fibular Anti Sensory (Ant Lat Mall)??? NO RESPONSE 14 cm NR 14 cm Ant Lat Mall 16.0 ? 1.9 4.6 Right Sup Fibular Anti Sensory (Ant Lat Mall)??? NO RESPONSE 14 cm NR 14 cm Ant Lat Mall 16.0 Left Sural Anti Sensory (Lat Mall)??? NO RESPONSE Calf NR Calf Lat Mall 16.0 Right Sural Anti Sensory (Lat Mall)??? NO RESPONSE Calf NR Calf Lat Mall 16.0 ?Stim Site NR Onset (ms) O-P Amp (mV) Site1 Site2 Delta-0 (ms) Dist (cm) Carlos (m/s) Left Peroneal Motor (Vastus Med) Ankle ? 4.9 0.5 Popit Ankle 11.6 42.0 36 Popit ? 16.5 0.4 Right Peroneal Motor (Vastus Med) Ankle ? 3.6 0.2 Popit Ankle 11.9 43.0 36 Popit ? 14.5 0.1 Left Tibial Motor (Abd Rausch Brev) Ankle ? 4.7 0.1 Knee Ankle 8.7 43.0 49 Knee ? 13.4 0.1 Right Tibial Motor (Abd Rausch Brev) Ankle ? 4.5 0.0 Knee Ankle 13.1 43.0 33 Knee ? 18.4 0.0 Electromyography ?Side Muscle Nerve Root Ins Act Fibs Amp Dur Recrt Comment Right AntTibialis Dp Br Fibular L4-5 Nml Nml Nml >12ms +1 Right Gastroc Tibial S1-2 Nml Nml Nml >12ms +1 Right Fibularis Long Sup Br Fibular L5-S1 Nml Nml Nml >12ms +1 Right Flex Dig Long Tibial L5-S2 Nml Nml Nml >12ms +1 Right Ext Dig Brev Dp Br Fibular L5, S1 Nml Nml Nml >12ms +1 Right QuadratusFem QuadFemoris L4-5, S1 Nml Nml Nml >12ms +1 Left AntTibialis Dp Br Fibular L4-5 Nml Nml Nml >12ms +1 Left Gastroc Tibial S1-2 Nml Nml Nml >12ms +1 Left Fibularis Long Sup Br Fibular L5-S1 Nml Nml Nml >12ms +1 Left Flex Dig Long Tibial L5-S2 Nml Nml Nml >12ms +1 Left Ext Dig Brev Dp Br Fibular L5, S1 Nml Nml Nml >12ms +1 Left QuadratusFem QuadFemoris L4-5, S1 Nml Nml Nml >12ms +1
== END 2025-06-16 08:06 | disposition home or self-care (01) ==
LOC: ANHNEURO 08:07
PROVIDERS: PCP Internal Medicine; Visit Provider Internal Medicine
DX: G90.09 Other idiopathic peripheral autonomic neuropathy (principal); R29.898 Other symptoms and signs involving the musculoskeletal system
CPT/HCPCS: 95886; 95910